=== PATIENT | female | born 2005 | race African-American/Black ===

== ENCOUNTER 2025-02-26 23:26 | Emergency (ER) | payer OTHER ==
--- OUTSIDE RECORDS SUMMARY | 2025-02-26 23:33 | XMS REPORT | Continuity of Care Document ---
Author Name Unknown Address [address] [facility] [address] [place] [address] [facility] [place] Address 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 Name Role Phone Erika Lopez MD Primary Care Physician [phone] Doctor Unassigned, Pearl Attending Clinician U Erika Bunch MD Attending Clinician [phone] ERIKA LOPEZ Attending Clinician Unavailable Payers Payer Name Policy Type Policy Number Effective Date Expirati on Date Source Problems Condition Name Condition Details Condition Category Status Onset Date Resolution Date Last Treatment Date Treating Clinician Comments Source No known active problems No known active problems Disease [facility] Allergies, Adverse Reactions, Alerts Allergy Name Allergy Type Status Severity Reaction(s) Onset Date Inactive Date Treating Clinician Comments Source NO KNOWN ALLERGIE S Drug Class Active [facility] Social History Social Habit Start Date Stop Date Quantity Comments Source [facility]2 (event) 2021-01-03 00:00:00 2021-02-02 14:54:00 Not sure [facility] Sex Assigned At 2005 00:00:00 2005 00:00:00 [facility] Smoking Status Start Date Stop Date Source Tobacco smoking consumption unknown [facility] Medications Ordered Medication Name Filled Medication Name Start Date Stop Date Current Medication? Ordering Clinician Indication Dosage Frequency Signature (SIG) Comments Components Source ferrous sulfate 325 mg (65 mg iron) tablet,preet yed release 01-26 00:00: 00 Yes 1(65 mg iron) Justin Walters [facility] No known medications [facility] No [facility] No known medications No Un silas [facility] No known medications No Un silas [facility] Immunizations Ordered Immunization Name Filled Immunization Name Date Status Comments Source Tdap Tdap 2025-01-22 00:00:00 Completed Justin Renae TDAP 2021-02-02 00:00:00 Completed [facility] Meningococcal Polysaccharide (groups A, C, Y and W-135) conjugate vaccine (MCV4P) 2021-02-02 00:00:00 Completed [facility] TDAP 2021-02-02 00:00:00 Completed [facility] Meningococcal Polysaccharide (groups A, C, Y and W-135) conjugate vaccine (MCV4P) 2021-02-02 00:00:00 Completed [facility] MMR 2011-12-11 00:00:00 Completed [facility] MMR 2011-12-11 00:00:00 Completed [facility] DTAP 2010-08-07 00:00:00 Completed [facility] Varicella (varivax)(chicken pox) 2010-08-07 00:00:00 Completed [facility] DTAP 2010-08-07 00:00:00 Completed [facility] Varicella (varivax)(chicken pox) 2010-08-07 00:00:00 Completed [facility] DTAP 2009-06-20 00:00:00 Completed [facility] HIB 4 Dose Schedule 2009-06-20 00:00:00 Completed [facility] HEPATITIS A 2009-06-20 00:00:00 Completed [facility] Pneumococcal 13 Conjugate, PCV13 (Prevnar 13) 2009-06-20 00:00:00 Completed [facility] DTAP 2009-06-20 00:00:00 Completed [facility] HIB 4 Dose Schedule 2009-06-20 00:00:00 Completed [facility] HEPATITIS A 2009-06-20 00:00:00 Completed [facility] Pneumococcal 13 Conjugate, PCV13 (Prevnar 13) 2009-06-20 00:00:00 Completed [facility] Polio (IPV/OPV) 2007-08-07 00:00:00 Completed [facility] Polio (IPV/OPV) 2007-08-07 00:00:00 Completed [facility] DTAP 2007-01-09 00:00:00 Completed [facility] HIB 4 Dose Schedule 2007-01-09 00:00:00 Completed [facility] HEPATITIS A 2007-01-09 00:00:00 Completed [facility] Hep B, Adol or Pedi Dosage 2007-01-09 00:00:00 Completed [facility] MMR 2007-01-09 00:00:00 Completed [facility] Pneumococcal 13 Conjugate, PCV13 (Prevnar 13) 2007-01-09 00:00:00 Completed [facility] Polio (IPV/OPV) 2007-01-09 00:00:00 Completed [facility] Varicella (varivax)(chicken pox) 2007-01-09 00:00:00 Completed [facility] DTAP 2007-01-09 00:00:00 Completed [facility] HIB 4 Dose Schedule 2007-01-09 00:00:00 Completed [facility] HEPATITIS A 2007-01-09 00:00:00 Completed [facility] Hep B, Adol or Pedi Dosage 2007-01-09 00:00:00 Completed [facility] MMR 2007-01-09 00:00:00 Completed [facility] Pneumococcal 13 Conjugate, PCV13 (Prevnar 13) 2007-01-09 00:00:00 Completed [facility] Polio (IPV/OPV) 2007-01-09 00:00:00 Completed [facility] Varicella (varivax)(chicken pox) 2007-01-09 00:00:00 Completed [facility] DTAP 2005 00:00:00 Completed [facility] HIB 4 Dose Schedule 2005 00:00:00 Completed [facility] Hep B, Adol or Pedi Dosage 2005 00:00:00 Completed [facility] Pneumococcal 13 Conjugate, PCV13 (Prevnar 13) 2005 00:00:00 Completed [facility] Polio (IPV/OPV) 2005 00:00:00 Completed [facility] DTAP 2005 00:00:00 Completed [facility] HIB 4 Dose Schedule 2005 00:00:00 Completed [facility] Hep B, Adol or Pedi Dosage 2005 00:00:00 Completed [facility] Pneumococcal 13 Conjugate, PCV13 (Prevnar 13) 2005 00:00:00 Completed [facility] Polio (IPV/OPV) 2005 00:00:00 Completed [facility] DTAP 2005 00:00:00 Completed [facility] HIB 4 Dose Schedule 2005 00:00:00 Completed [facility] Hep B, Adol or Pedi Dosage 2005 00:00:00 Completed [facility] Pneumococcal 13 Conjugate, PCV13 (Prevnar 13) 2005 00:00:00 Completed [facility] Polio (IPV/OPV) 2005 00:00:00 Completed [facility] DTAP 2005 00:00:00 Completed [facility] HIB 4 Dose Schedule 2005 00:00:00 Completed [facility] Hep B, Adol or Pedi Dosage 2005 00:00:00 Completed [facility] Pneumococcal 13 Conjugate, PCV13 (Prevnar 13) 2005 00:00:00 Completed [facility] Polio (IPV/OPV) 2005 00:00:00 Completed [facility] Hep B, Adol or Pedi Dosage 2005 00:00:00 Completed [facility] Hep B, Adol or Pedi Dosage 2005 00:00:00 Completed [facility] TDAP Unknown Completed [facility] Meningococcal Polysaccharide (groups A, C, Y and W-135) conjugate vaccine (MCV4P) Unknown Completed [facility] DTAP Unknown Completed [facility] HIB 4 Dose Schedule Unknown Completed [facility] HEPATITIS A Unknown Completed [facility] Hep B, Adol or Pedi Dosage Unknown Completed [facility] MMR Unknown Completed [facility] Pneumococcal 13 Conjugate, PCV13 (Prevnar 13) Unknown Completed [facility] Polio (IPV/OPV) Unknown Completed [facility] Varicella (varivax)(chicken pox) Unknown Completed [facility] Vital Signs Vital Name Observation Time Observation Value Comments S ource Systolic blood pressure 2021-02-02 19:46:00 90 mm[Hg] [facility] Diastolic blood pressure 2021-02-02 19:46:00 60 mm[Hg] [facility] Heart rate 2021-02-02 19:46:00 88 /min [facility] Body height 2021-02-02 19:46:00 154.9 cm [facility] Body weight 2021-02-02 19:46:00 52.164 kg [facility] BMI 2021-02-02 19:46:00 21.73 kg/m2 [facility] Oxygen saturation in Arterial blood by Pulse oximetry 2021-02-02 19:46:00 99 /min [facility] BP Systolic 2025-02-05 10:44:00 104 mm[Hg] Step hen F Oc BP Diastolic 2025-02-05 10:44:00 68 mm[Hg] [place]ne phen F Oc Weight Measured 2025-02-05 10:44:00 119.00 pounds Justin Walters Oc Height Measured 2025-02-05 10:44:00 60.63 inches Justin Renae Body Temperature 2025-02-05 10:44:00 98.10 degrees Justin F Oc Heart Rate 2025-02-05 10:44:00 75.00 /min Yuliya en F Oc Respiratory Rate 2025-02-05 10:44:00 18.00 /min Justin F Oc BP Systolic 2025-01-22 09:35:00 108 mm[Hg] Step hen F Oc BP Diastolic 2025-01-22 09:35:00 69 mm[Hg] Shayne phen F Oc Weight Measured 2025-01-22 09:35:00 118.80 pounds Justin Selena Renae Height Measured 2025-01-22 09:35:00 60.63 inches Justin F Oc Body Temperature 2025-01-22 09:35:00 98.00 degrees Justin F Oc Heart Rate 2025-01-22 09:35:00 65.00 /min Yuliya en F Oc Respiratory Rate 2025-01-22 09:35:00 14.00 /min Justin F Oc BP Systolic 2024-12-25 13:29:00 98 mm[Hg] Step hen F Oc BP Diastolic 2024-12-25 13:29:00 68 mm[Hg] Shayne phen F Oc Weight Measured 2024-12-25 13:29:00 118.80 pounds Justin F Oc Height Measured 2024-12-25 13:29:00 60.63 inches Justin F Oc Body Temperature 2024-12-25 13:29:00 97.90 degrees Justin F Oc Heart Rate 2024-12-25 13:29:00 86.00 /min Yuliya en F Oc Respiratory Rate 2024-12-25 13:29:00 18.00 /min Justin F Oc BP Systolic 2024-11-26 14:33:00 117 mm[Hg] Step hen F Oc BP Diastolic 2024-11-26 14:33:00 78 mm[Hg] Sh[place]ne phen F Oc Weight Measured 2024-11-26 14:33:00 113.80 pounds Justin F Oc Height Measured 2024-11-26 14:33:00 60.63 inches Justin F Oc Body Temperature 2024-11-26 14:33:00 97.50 degrees Justin F Oc Heart Rate 2024-11-26 14:33:00 72.00 /min Yuliya en F Oc Respiratory Rate 2024-11-26 14:33:00 17.00 /min Justin F Oc BP Systolic 2024-10-27 15:59:00 109 mm[Hg] Step hen F Oc BP Diastolic 2024-10-27 15:59:00 80 mm[Hg] Sh[place]ne phen F Oc Weight Measured 2024-10-27 15:59:00 109.20 pounds Justin F Oc Height Measured 2024-10-27 15:59:00 60.63 inches Justin F Oc Body Temperature 2024-10-27 15:59:00 97.80 degrees Justin F Oc Heart Rate 2024-10-27 15:59:00 90.00 /min Yuliya en F Oc Respiratory Rate 2024-10-27 15:59:00 16.00 /min Justin F Oc BP Systolic 2024-09-29 15:54:00 114 mm[Hg] Step hen F Oc BP Diastolic 2024-09-29 15:54:00 79 mm[Hg] Sh[place]ne phen F Oc Weight Measured 2024-09-29 15:54:00 108.20 pounds Justin F Oc Height Measured 2024-09-29 15:54:00 60.63 inches Justin F Oc Body Temperature 2024-09-29 15:54:00 98.20 degrees Justin F Oc Heart Rate 2024-09-29 15:54:00 69.00 /min Yuliya en F Oc Respiratory Rate 2024-09-29 15:54:00 18.00 /min Justin F Oc BP Systolic 2024-09-02 14:26:00 111 mm[Hg] Step hen F Oc BP Diastolic 2024-09-02 14:26:00 70 mm[Hg] [place]ne phen F Oc Weight Measured 2024-09-02 14:26:00 108.20 pounds Justin F Oc Height Measured 2024-09-02 14:26:00 60.63 inches Justin F Oc Body Temperature 2024-09-02 14:26:00 98.30 degrees Justin F Oc Heart Rate 2024-09-02 14:26:00 70.00 /min Yuliya en F Oc Respiratory Rate 2024-09-02 14:26:00 17.00 /min Justin F Oc BP Systolic 2024-08-28 13:19:00 120 mm[Hg] Step hen F Oc BP Diastolic 2024-08-28 13:19:00 71 mm[Hg] [place]ne phen F Oc Weight Measured 2024-08-28 13:19:00 109.80 pounds Justin F Oc Height Measured 2024-08-28 13:19:00 60.63 inches Justin F Oc Body Temperature 2024-08-28 13:19:00 98.10 degrees Justin F Oc Heart Rate 2024-08-28 13:19:00 73.00 /min Yuliya en F Oc Respiratory Rate 2024-08-28 13:19:00 16.00 /min Justin F Oc BP Systolic 2024-03-19 14:09:00 122 mm[Hg] Step hen F Oc BP Diastolic 2024-03-19 14:09:00 86 mm[Hg] [place]ne phen F Oc Weight Measured 2024-03-19 14:09:00 125.00 pounds Justin F Oc Height Measured 2024-03-19 14:09:00 60.63 inches Justin F Oc Body Temperature 2024-03-19 14:09:00 98.10 degrees Justin F Oc Heart Rate 2024-03-19 14:09:00 69.00 /min Yuliya en F Oc Respiratory Rate 2024-03-19 14:09:00 18.00 /min Justin F Oc BP Systolic 2024-03-06 11:11:00 116 mm[Hg] Step hen F Oc BP Diastolic 2024-03-06 11:11:00 67 mm[Hg] [place]ne phen F Oc Weight Measured 2024-03-06 11:11:00 124.20 pounds Justin F Oc Height Measured 2024-03-06 11:11:00 60.63 inches Justin F Oc Body Temperature 2024-03-06 11:11:00 98.20 degrees Justin F Oc Heart Rate 2024-03-06 11:11:00 66.00 /min Yuliya en F Oc Respiratory Rate 2024-03-06 11:11:00 18.00 /min Justin F Oc Heart Rate 2024-02-20 11:17:00 81.00 /min Yuliya en F Oc Respiratory Rate 2024-02-20 11:17:00 Justin F Oc BP Systolic 2024-02-20 11:17:00 131 mm[Hg] Step hen F Oc BP Diastolic 2024-02-20 11:17:00 87 mm[Hg] [place]ne phen F Oc Weight Measured 2024-02-20 11:17:00 124.90 pounds Justin F Oc Height Measured 2024-02-20 11:17:00 60.63 inches Justin F Oc Body Temperature 2024-02-20 11:17:00 98.10 degrees Justin F Oc BP Systolic 2023-12-23 13:18:00 113 mm[Hg] Step hen F Oc BP Diastolic 2023-12-23 13:18:00 73 mm[Hg] Shayne Renae Weight Measured 2023-12-23 13:18:00 119.20 pounds Justin Renae Height Measured 2023-12-23 13:18:00 60.83 inches Justin Renae Body Temperature 2023-12-23 13:18:00 97.80 degrees Justin Renae Heart Rate 2023-12-23 13:18:00 88.00 /min Yuliya Renae Respiratory Rate 2023-12-23 13:18:00 18.00 /min Justin Renae Procedures Procedure Date / Time Performed Performing Clinician Source VACCINATIONS - CONSENTS, ELIGIBILITY, HISTORY 2021-02-27 05:01:00 Doctor Unassigned, Pearl [facility] TDAP VACCINE, >11 YRS, IM 2021-02-02 20:02:06 Erika Lopez [facility] MENACTRA (MCV4-D) VACCINE 2021-02-02 20:02:06 Erika Lopez [facility] Encounters Start Date/Time End Date/Time Encounter Type Admission Type Attending [facility] Care Department Encounter ID Source 2025-02-05 10:41:01 2025-02-05 10:41:[address] [facility] [id number] Justin Renae 2025-02-05 00:00:00 2025-02-05 00:00:00 Outpatient Visit SFA [id number] Justin Renae 2025-01-22 09:16:57 2025-01-22 09:16:[address] [facility] [id number] Justin Renae 2025-01-22 00:00:00 2025-01-22 00:00:00 Outpatient Visit SFA [id number] Justin Renae 2024-12-25 13:25:45 2024-12-25 13:25:[address] [facility] [id number] Justin Renae 2024-12-25 00:00:00 2024-12-25 00:00:00 Outpatient Visit SFA [id number] Justin Renae 2024-12-17 11:42:06 2024-12-17 11:42:06 Outpatient SFA SFA [id number] Justin Renae 2024-11-26 14:28:45 2024-11-26 14:28:45 Outpatient SFA [facility] [id number] Justin Renae 2024-11-26 00:00:00 2024-11-26 00:00:00 Outpatient Visit SFA [id number] Justin Renae 2024-10-27 15:44:56 2024-10-27 15:44:56 Outpatient SFA SFA [id number] Justin Renae 2024-10-27 00:00:00 2024-10-27 00:00:00 Outpatient Visit SFA [id number] Justin Renae 2024-10-15 15:51:48 2024-10-15 15:51:48 Outpatient SFA SFA [id number] Justin Renae 2024-10-12 16:47:34 2024-10-12 16:47:34 Outpatient SFA SFA [id number] Justin Renae 2024-09-29 15:45:29 2024-09-29 15:45:29 Outpatient SFA SFA [id number] Justin Renae 2024-09-29 00:00:00 2024-09-29 00:00:00 Outpatient Visit SFA [id number] Justin Renae 2024-09-17 14:34:51 2024-09-17 14:34:51 Outpatient SFA SFA [id number] Justin Renae 2024-09-02 13:53:08 2024-09-02 13:53:08 Outpatient SFA SFA [id number] Justin Renae 2024-09-02 00:00:00 2024-09-02 00:00:00 Outpatient Visit SFA [id number] Justin Renae 2024-08-28 13:08:56 2024-08-28 13:08:56 Outpatient SFA SFA [id number] Justin Renae 2024-08-28 00:00:00 2024-08-28 00:00:00 Outpatient Visit SFA [id number] Justin Renae 2024-03-19 14:06:23 2024-03-19 14:06:23 Outpatient SFA SFA [id number] Justin Renae 2024-03-19 00:00:00 2024-03-19 00:00:00 Outpatient Visit SFA [id number] Justin Renae 2024-03-06 13:47:01 2024-03-06 13:47:01 Outpatient SFA SFA [id number] Justin Renae 2024-03-06 00:00:00 2024-03-06 00:00:00 Outpatient Visit SFA [id number] Justin Renae 2024-02-24 09:16:57 2024-02-24 09:16:57 Outpatient SFA SFA [id number] Justin Renae 2024-02-20 11:08:26 2024-02-20 11:08:26 Outpatient SFA SFA [id number] Justin Renae 2024-02-20 00:00:00 2024-02-20 00:00:00 Outpatient Visit SFA [id number] Justin Renae 2023-12-23 13:10:52 2023-12-23 13:10:52 Outpatient SFA SFA [id number] Justin Renae 2021-02-27 00:00:00 2021-02-27 00:00:00 Orders Only Doctor Unassigned, Pearl [facility] 1..114 [id number] [facility] 2021-02-03 00:00:00 2021-02-03 00:00:00 Patient Secure Msg Doctor Unassigned, Pearl [facility] 1.0.114 [id number] [facility] 2021-02-02 14:28:01 2021-02-02 15:54:26 Office Visit Erika Lopez [facility] [address] 1.114 [id number] [facility] 2021-02-02 14:30:00 2021-02-02 14:30:00 Outpatient R [facility]RIKA [facility]OPE[facility] [id number] [facility] Results Test Description Test Time Test Comments Results Result Co mments Source Justin Walters [facility] (INCLUDES DIFF/PLT)2025-01-25 00:00:00* Test Item Value Reference Range Interpretation Comme nts WHITE BLOOD CELL COUNT (test code = 6690-2) 5.4 Thousand/uL RED BLOOD CELL COUNT (test code = 789-8) 3.23 Million/uL HEMOGLOBIN (test code = 718-7) 9.9 g/dL HEMATOCRIT (test code = 4544-3) 29.7 % MCV (test code = 787-2) 92.0 fL MCH (test code = 785-6) 30.7 pg MCHC (test code = 786-4) 33.3 g/dL RDW (test code = 788-0) 12.3 % PLATELET COUNT (test code = 777-3) 218 Thousand/uL MPV (test code = 776-5) 11.7 fL ABSOLUTE NEUTROPHILS (test code = 751-8) 3985 cells/uL ABSOLUTE BAND NEUTROPHILS (test code = 68266-4) DNR cells/uL ABSOLUTE METAMYELOCYTES (marian t code = 21632-4) DNR cells/uL ABSOLUTE MYELOCYTES (test code = 46546-0) DNR cells/uL ABSOLUTE PROMYELOCYTES (test code = 62953-3) DNR cells/uL ABSOLUTE LYMPHOCYTES (test code = 731-0) 859 cells/uL ABSOLUTE MONOCYTES (test cod e = 742-7) 432 cells/uL ABSOLUTE EOSINOPHILS (test code = 711-2) 103 cells/uL ABSOLUTE BASOPHILS (test cod e = 704-7) 22 cells/uL ABSOLUTE BLASTS (test code = 22558-0) DNR cells/uL ABSOLUTE NUCLEATED RBC (test code = 58110-9) DNR cells/uL NEUTROPHILS (test code = 770-8) 73.8 % BAND NEUTROPHILS (test code = 764-1) DNR % METAMYELOCYTES (test code = 740-1) DNR % MYELOCYTES (test code = 749-2) DNR % PROMYELOCYTES (test code = 783-1) DNR % LYMPHOCYTES (test code = 736-9) 15.9 % REACTIVE LYMPHOCYTES (test code = 36927-4) DNR % MONOCYTES (test code = 5905-5) 8.0 % EOSINOPHILS (test code = 713-8) 1.9 % BASOPHILS (test code = 706-2) 0.4 % BLASTS (test code = 709-6) DNR % NUCLEATED RBC (test code = 63978-7) DNR /100WBC COMMENT(S) (test code = 8251-1) DNR Justin F AustinCHLAMYDIA/N. GONORRHOEAE RNA, [id number] 00:00:00* Test Item Value Reference Range Interpretation Comme nts CHLAMYDIA TRACHOMATIS RNA, T MA, UROGENITAL (test code = 43858-7) NOT DETECTED NEISSERIA GONORRHOEAE RNA, T MA, UROGENITAL (test code = 45810-8) NOT DETECTED Justin F AustinGLUCOSE, GESTATIONAL SCREEN (50G)-135 [id number] 00:00:00 * Test Item Value Reference Range Interpretation Comme nts GLUCOSE, GESTATIONAL SCREEN (50G)-135 CUTOFF (test code = 1504-0) 73 mg/dL Justin RenaeHIV 1/2 ANTIGEN/ANTIBODY,FOURTH GENERATION [id number] 00:00:00* Test Item Value Reference Range Interpretation Comme nts HIV AG/AB, 4TH GEN (test cod e = 14558-2) NON-REACTIVE Justin RenaeRPR (MONITOR) W/REFL [id number] 00:00:00* Test Item Value Reference Range Interpretation Comme nts RPR (MONITOR) W/REFL TITER ( test code = 01543-0) NON-REACTIVE Justin Sepulveda w/ABR [id number] 00:00:00* Test Item Value Reference Range Interpretation Comme nts ACINETOBACTER BAUMANNII (marian t code = 80488-3) Negative KLEBSIELLA AEROGENES (test c ode = 63469-4) Negative CITROBACTER FREUNDII (test c ode = 83945-6) Negative ENTEROBACTER CLOACAE (test c ode = 63565LKU) Negative ESCHERICHIA COLI (test code = 39517-4) Negative KLEBSIELLA OXYTOCA (test cod e = 36675-7) Negative KLEBSIELLA PNEUMONIAE (test code = 64994-7) Negative MORGANELLA MORGANII (test co de = 14913-7) Negative MYCOPLASMA HOMINIS (test cod e = 81295-1) Negative PROTEUS MIRABILIS (test code = 72165-3) Negative PROTEUS VULGARIS (test code = 194149-6) Negative PROVIDENCIA STUARTII (test c ode = 27742-3) Negative PSEUDOMONAS AERUGINOSA (test code = 63705-4) Negative SERRATIA MARCESCENS (test co de = 77456-4) Negative UREAPLASMA UREALYTICUM (test code = 79768-4) Negative ENTEROCOCCUS FAECALIS (test code = 20695-9) Negative ENTEROCOCCUS FAECIUM (test c ode = 46801-7) Negative STAPHYLOCOCCUS AUREUS (test code = 58025-2) Negative STAPHYLOCOCCUS SAPROPHYTICUS (test code = 14217-3) Negative STREPTOCOCCUS AGALACTIAE (te st code = 57697-7) Negative BRAYDON ALBICANS (test code = 14018-7) Negative BRAYDON GLABRATA (test code = no code1) Negative BRAYDON PARAPSILOSIS (test c ode = no code3) Negative BRAYDON TROPICALIS (test cod e = No code) Negative Justin Sepulveda w/ABR [id number] 00:00:00* Test Item Value Reference Range Interpretation Comme nts ACINETOBACTER BAUMANNII (marian t code = 61160-8) Negative KLEBSIELLA AEROGENES (test c ode = 04889-7) Negative CITROBACTER FREUNDII (test c ode = 19543-5) Negative ENTEROBACTER CLOACAE (test c ode = 68567AFE) Negative ESCHERICHIA COLI (test code = 75830-0) Negative KLEBSIELLA OXYTOCA (test cod e = 35269-3) Negative KLEBSIELLA PNEUMONIAE (test code = 93736-8) Negative MORGANELLA MORGANII (test co de = 45465-6) Negative MYCOPLASMA HOMINIS (test cod e = 96177-2) Negative PROTEUS MIRABILIS (test code = 59410-6) Negative PROTEUS VULGARIS (test code = 565559-9) Negative PROVIDENCIA STUARTII (test c ode = 82788-4) Negative PSEUDOMONAS AERUGINOSA (test code = 24955-6) Negative SERRATIA MARCESCENS (test co de = 21422-8) Negative UREAPLASMA UREALYTICUM (test code = 87014-3) Negative ENTEROCOCCUS FAECALIS (test code = 76275-6) Negative ENTEROCOCCUS FAECIUM (test c ode = 70082-3) Negative STAPHYLOCOCCUS AUREUS (test code = 31442-4) Negative STAPHYLOCOCCUS SAPROPHYTICUS (test code = 96796-2) Negative STREPTOCOCCUS AGALACTIAE (te st code = 27516-6) Negative BRAYDON ALBICANS (test code = 29691-5) Negative BRAYDON GLABRATA (test code = no code1) Negative BRAYDON PARAPSILOSIS (test c ode = no code3) Negative BRAYDON TROPICALIS (test cod e = No code) Negative Justin Walters AustinPanorama NIPT [id number] 00:00:00* Test Item Value Reference Range Interpretation Comme nts Report Summary (test code = REPORT_SUMMARY) LOW RISK Report Note (test code = REPORT_NOTE) See Notes Trisomy 13 Age-Based Risk Text (test code = NPT_T13_AGE_BASED_RISK_TEX T) <1/10,000 (<0.01%) Trisomy 13 Risk Score Text (test code = NPT_T13_RISK_SCORE_TEXT) <1/10,000 (<0.01%) Trisomy 13 Result Text (test code = NPT_T13_RESULT_TEXT) Low Risk Trisomy 18 Age-Based Risk Text (test code = NPT_T18_AGE_BASED_RISK_TEX T) 1/4,897 (0.02%) Trisomy 18 Risk Score Text (test code = NPT_T18_RISK_SCORE_TEXT) <1/10,000 (<0.01%) Trisomy 18 Result Text (test code = NPT_T18_RESULT_TEXT) Low Risk Trisomy 21 Age-Based Risk Text (test code = NPT_T21_AGE_BASED_RISK_TEX T) 1/1,295 (0.08%) Trisomy 21 Risk Score Text (test code = NPT_T21_RISK_SCORE_TEXT) <1/10,000 (<0.01%) Trisomy 21 Result Text (test code = NPT_T21_RESULT_TEXT) Low Risk Monosomy X Age-Based Risk Text (test code = NPT_X_AGE_BASED_RISK_TEXT) 1/568 (0.18%) Monosomy X Risk Score Text (test code = NPT_X_RISK_SCORE_TEXT) <1/10,000 (<0.01%) Monosomy X Result Text (test code = NPT_X_RESULT_TEXT) Low Risk 22q11.2 Deletion Syndrome Population-Based Risk Text (test code = NPT_22Q_POP_BASED_RISK_TEX T) 1/2,000 22q11.2 Deletion Syndrome Risk Score Text (test code = NPT_22Q_RISK_SCORE_TEXT) 1/12,000 22q11.2 Deletion Syndrome Result Text (test code = NPT_22Q_RESULT_TEXT) Low Risk Triploidy Result Text (test code = NPT_TRI_RESULT_TEXT) Low Risk Gender of Fetus (test code = GENDER_OF_FETUS) Male Fraction (test code = FETAL_FRACTION_STRING) 19.9% Footnotes (test code = FOOTNOTES) See Notes PDF Report (test code = EMBEDDED_PDF) PDF Justin Ruiz NIPT [id number] 00:00:00* Test Item Value Reference Range Interpretation Comme nts Report Summary (test code = REPORT_SUMMARY) LOW RISK Report Note (test code = REPORT_NOTE) See Notes Trisomy 13 Age-Based Risk Text (test code = NPT_T13_AGE_BASED_RISK_TEX T) <1/10,000 (<0.01%) Trisomy 13 Risk Score Text (test code = NPT_T13_RISK_SCORE_TEXT) <1/10,000 (<0.01%) Trisomy 13 Result Text (test code = NPT_T13_RESULT_TEXT) Low Risk Trisomy 18 Age-Based Risk Text (test code = NPT_T18_AGE_BASED_RISK_TEX T) 1/4,897 (0.02%) Trisomy 18 Risk Score Text (test code = NPT_T18_RISK_SCORE_TEXT) <1/10,000 (<0.01%) Trisomy 18 Result Text (test code = NPT_T18_RESULT_TEXT) Low Risk Trisomy 21 Age-Based Risk Text (test code = NPT_T21_AGE_BASED_RISK_TEX T) 1/1,295 (0.08%) Trisomy 21 Risk Score Text (test code = NPT_T21_RISK_SCORE_TEXT) <1/10,000 (<0.01%) Trisomy 21 Result Text (test code = NPT_T21_RESULT_TEXT) Low Risk Monosomy X Age-Based Risk Text (test code = NPT_X_AGE_BASED_RISK_TEXT) 1/568 (0.18%) Monosomy X Risk Score Text (test code = NPT_X_RISK_SCORE_TEXT) <1/10,000 (<0.01%) Monosomy X Result Text (test code = NPT_X_RESULT_TEXT) Low Risk 22q11.2 Deletion Syndrome Population-Based Risk Text (test code = NPT_22Q_POP_BASED_RISK_TEX T) 1/2,000 22q11.2 Deletion Syndrome Risk Score Text (test code = NPT_22Q_RISK_SCORE_TEXT) 1/12,000 22q11.2 Deletion Syndrome Result Text (test code = NPT_22Q_RESULT_TEXT) Low Risk Triploidy Result Text (test code = NPT_TRI_RESULT_TEXT) Low Risk Gender of Fetus (test code = GENDER_OF_FETUS) Male Fraction (test code = FETAL_FRACTION_STRING) 19.9% Footnotes (test code = FOOTNOTES) See Notes PDF Report (test code = EMBEDDED_PDF) PDF Justin Ruiz NIPT [id number] 00:00:00* Test Item Value Reference Range Interpretation Comme nts Report Summary (test code = REPORT_SUMMARY) LOW RISK Report Note (test code = REPORT_NOTE) See Notes Trisomy 13 Age-Based Risk Text (test code = NPT_T13_AGE_BASED_RISK_TEX T) <1/10,000 (<0.01%) Trisomy 13 Risk Score Text (test code = NPT_T13_RISK_SCORE_TEXT) <1/10,000 (<0.01%) Trisomy 13 Result Text (test code = NPT_T13_RESULT_TEXT) Low Risk Trisomy 18 Age-Based Risk Text (test code = NPT_T18_AGE_BASED_RISK_TEX T) 1/4,897 (0.02%) Trisomy 18 Risk Score Text (test code = NPT_T18_RISK_SCORE_TEXT) <1/10,000 (<0.01%) Trisomy 18 Result Text (test code = NPT_T18_RESULT_TEXT) Low Risk Trisomy 21 Age-Based Risk Text (test code = NPT_T21_AGE_BASED_RISK_TEX T) 1/1,295 (0.08%) Trisomy 21 Risk Score Text (test code = NPT_T21_RISK_SCORE_TEXT) <1/10,000 (<0.01%) Trisomy 21 Result Text (test code = NPT_T21_RESULT_TEXT) Low Risk Monosomy X Age-Based Risk Text (test code = NPT_X_AGE_BASED_RISK_TEXT) 1/568 (0.18%) Monosomy X Risk Score Text (test code = NPT_X_RISK_SCORE_TEXT) <1/10,000 (<0.01%) Monosomy X Result Text (test code = NPT_X_RESULT_TEXT) Low Risk 22q11.2 Deletion Syndrome Population-Based Risk Text (test code = NPT_22Q_POP_BASED_RISK_TEX T) 2,000 22q11.2 Deletion Syndrome Risk Score Text (test code = NPT_22Q_RISK_SCORE_TEXT) 11/08, 22q11.2 Deletion Syndrome Result Text (test code = NPT_22Q_RESULT_TEXT) Low Risk Triploidy Result Text (test code = NPT_TRI_RESULT_TEXT) Low Risk Gender of Fetus (test code = GENDER_OF_FETUS) Male Fraction (test code = FETAL_FRACTION_STRING) 19.9% Footnotes (test code = FOOTNOTES) See Notes PDF Report (test code = EMBEDDED_PDF) PDF Justin Walters AustinMATERNAL AFP FOR NTD [id number] 00:00:00* Test Item Value Reference Range Interpretation Comme nts INTERPRETATION (test code = 682698) SCREEN NEGATIVE Neural tube defect risk (marian t code = 51199) 1:7752 Neural tube defect interpretation (test code = 23100) (NOTE) DATE OF (test code = 2660) 2005 MATERNAL WEIGHT (test code = 2657) 114 LBS INITIAL/REPEAT (test code = 598217) INITIAL FAMILY HISTORY OF NTD (test code = 910155) NO INSULIN DEP. DIABETIC (test code = 2659) NO RACE (test code = 2658) OTHER SMOKER? (test code = 741605) NO NUMBER OF FETUSES (test code = 63911) 1 GESTATIONAL AGE (test code = 2656) 21.1 WEEKS DETERMINED BY: (test code = 2654) LMP DATE OF LMP (test code = 2652) 07/01/2024 ADJUST AFP M.O.M. (test code = 2661) 0.53 M.O.M. AFP (test code = 75648) 41.5 NG/ML Justin Walters AustinMATERNAL AFP FOR NTD [id number] 00:00:00* Test Item Value Reference Range Interpretation Comme nts INTERPRETATION (test code = 686602) SCREEN NEGATIVE Neural tube defect risk (marian t code = 81511) 1:7752 Neural tube defect interpretation (test code = 56517) (NOTE) DATE OF (test code = 2660) 2005 MATERNAL WEIGHT (test code = 2657) 114 LBS INITIAL/REPEAT (test code = 776520) INITIAL FAMILY HISTORY OF NTD (test code = 668634) NO INSULIN DEP. DIABETIC (test code = 2659) NO RACE (test code = 2658) OTHER SMOKER? (test code = 814475) NO NUMBER OF FETUSES (test code = 80934) 1 GESTATIONAL AGE (test code = 2656) 21.1 WEEKS DETERMINED BY: (test code = 2654) LMP DATE OF LMP (test code = 2652) 07/01/2024 ADJUST AFP M.O.M. (test code = 2661) 0.53 M.O.M. AFP (test code = 03797) 41.5 NG/ML Justin RenaeMATERNAL AFP FOR NTD [id number] 00:00:00* Test Item Value Reference Range Interpretation Comme nts INTERPRETATION (test code = 383217) SCREEN NEGATIVE Neural tube defect risk (marian t code = 92267) 1:7752 Neural tube defect interpretation (test code = 98478) (NOTE) DATE OF (test code = 2660) 2005 MATERNAL WEIGHT (test code = 2657) 114 LBS INITIAL/REPEAT (test code = 009132) INITIAL FAMILY HISTORY OF NTD (test code = 485588) NO INSULIN DEP. DIABETIC (test code = 2659) NO RACE (test code = 2658) OTHER SMOKER? (test code = 030434) NO NUMBER OF FETUSES (test code = 85439) 1 GESTATIONAL AGE (test code = 2656) 21.1 WEEKS DETERMINED BY: (test code = 2654) LMP DATE OF LMP (test code = 2652) 07/01/2024 ADJUST AFP M.O.M. (test code = 2661) 0.53 M.O.M. AFP (test code = 67235) 41.5 NG/ML Justin Stratton, [id number] 00:00:00* Test Item Value Reference Range Interpretation Comme nts CULTURE, URINE (test code = 63074) SPECIMEN NUMBER: [id number] Justin RenaeCULTURE, [id number] 00:00:00* Test Item Value Reference Range Interpretation Comme nts CULTURE, URINE (test code = 94416) SPECIMEN NUMBER: [id number] Justin RenaeCULTURE, [id number] 00:00:00* Test Item Value Reference Range Interpretation Comme nts CULTURE, URINE (test code = 67675) SPECIMEN NUMBER: [id number] Justin ReaneCULTURE, [id number] 00:00:00* Test Item Value Reference Range Interpretation Comme nts CULTURE, URINE (test code = 43884) SPECIMEN NUMBER: [id number] Justin Stratton, [id number] 00:00:00* Test Item Value Reference Range Interpretation Comme nts CULTURE, URINE (test code = 71780) SPECIMEN NUMBER: [id number] Justin Stratton, [id number] 00:00:00* Test Item Value Reference Range Interpretation Comme nts CULTURE, URINE (test code = 46922) SPECIMEN NUMBER: [id number] Justin JungLTTESHA, [id number] 00:00:00* Test Item Value Reference Range Interpretation Comme nts CULTURE, URINE (test code = 15667) SPECIMEN NUMBER: [id number] Justin Bandazon 14 ([facility])2024-10-27 00:00:00* Test Item Value Reference Range Interpretation Comme nts Report Summary (test code = REPORT_SUMMARY) Negative Alpha-Thalassemia (test code = 81929) Negative Beta-Hemoglobinopathies (marian t code = 70377) Negative Mariah Disease (test code = 90541) Negative Cystic Fibrosis (test code = 04073) Negative Duchenne/Garay Muscular Dys trophy (X-linked) (test code = 55501) Negative Familial Dysautonomia (test code = 73467) Negative Fragile X Syndrome (X-linked ) (test code = 89790) Negative Galactosemia (test code = 92885) Negative Gaucher Disease (test code = 91673) Negative Medium Chain Acyl-CoA Dehydr ogenase Deficiency (test code = 73280) Negative Polycystic Kidney Disease, Autosomal Recessive (test code = 31767) Negative Xptrd-Vivrz-Pbjfr Syndrome ( test code = 59487) Negative Spinal Muscular Atrophy (marian t code = 10868) Negative Cortez-Sachs Disease (test code = 37570) Negative Panel Notes (test code = CS_PANEL_NOTES) See Notes Report Note (test code = REPORT_NOTE) See Notes Footnotes (test code = FOOTNOTES) See Notes PDF Report (test code = EMBEDDED_PDF) PDF Justin Shaikhn 14 ([employer])2024-10-27 00:00:00* Test Item Value Reference Range Interpretation Comme nts Report Summary (test code = REPORT_SUMMARY) Negative Alpha-Thalassemia (test code = 72780) Negative Beta-Hemoglobinopathies (marian t code = 60652) Negative Mariah Disease (test code = 50398) Negative Cystic Fibrosis (test code = 96863) Negative Duchenne/Garay Muscular Dys trophy (X-linked) (test code = 02585) Negative Familial Dysautonomia (test code = 92959) Negative Fragile X Syndrome (X-linked ) (test code = 62957) Negative Galactosemia (test code = 07371) Negative Gaucher Disease (test code = 24384) Negative Medium Chain Acyl-CoA Dehydr ogenase Deficiency (test code = 72049) Negative Polycystic Kidney Disease, Autosomal Recessive (test code = 55043) Negative Nxrbm-Jjkkx-Lysul Syndrome ( test code = 90399) Negative Spinal Muscular Atrophy (marian t code = 59513) Negative Cortez-Sachs Disease (test code = 20299) Negative Panel Notes (test code = CS_PANEL_NOTES) See Notes Report Note (test code = REPORT_NOTE) See Notes Footnotes (test code = FOOTNOTES) See Notes PDF Report (test code = EMBEDDED_PDF) PDF Justin Graff 14 ([employer])2024-10-27 00:00:00* Test Item Value Reference Range Interpretation Comme nts Report Summary (test code = REPORT_SUMMARY) Negative Alpha-Thalassemia (test code = 90096) Negative Beta-Hemoglobinopathies (marian t code = 69839) Negative Mariah Disease (test code = 66814) Negative Cystic Fibrosis (test code = 22348) Negative Duchenne/Garay Muscular Dys trophy (X-linked) (test code = 97611) Negative Familial Dysautonomia (test code = 34467) Negative Fragile X Syndrome (X-linked ) (test code = 84598) Negative Galactosemia (test code = 12890) Negative Gaucher Disease (test code = 10506) Negative Medium Chain Acyl-CoA Dehydr ogenase Deficiency (test code = 64791) Negative Polycystic Kidney Disease, Autosomal Recessive (test code = 26134) Negative Oresn-Wsqcg-Fsmqh Syndrome ( test code = 35515) Negative Spinal Muscular Atrophy (marian t code = 28262) Negative Cortez-Sachs Disease (test code = 21423) Negative Panel Notes (test code = CS_PANEL_NOTES) See Notes Report Note (test code = REPORT_NOTE) See Notes Footnotes (test code = FOOTNOTES) See Notes PDF Report (test code = EMBEDDED_PDF) PDF Justin Shaikhn 14 ([employer])2024-10-27 00:00:00* Test Item Value Reference Range Interpretation Comme nts Report Summary (test code = REPORT_SUMMARY) Negative Alpha-Thalassemia (test code = 96769) Negative Beta-Hemoglobinopathies (marian t code = 60334) Negative Mariah Disease (test code = 69299) Negative Cystic Fibrosis (test code = 76538) Negative Duchenne/Garay Muscular Dys trophy (X-linked) (test code = 58646) Negative Familial Dysautonomia (test code = 57759) Negative Fragile X Syndrome (X-linked ) (test code = 15669) Negative Galactosemia (test code = 74227) Negative Gaucher Disease (test code = 38616) Negative Medium Chain Acyl-CoA Dehydr ogenase Deficiency (test code = 88272) Negative Polycystic Kidney Disease, Autosomal Recessive (test code = 44406) Negative Czrtx-Rbkey-Kskbb Syndrome ( test code = 73565) Negative Spinal Muscular Atrophy (marian t code = 42142) Negative Cortez-Sachs Disease (test code = 37634) Negative Panel Notes (test code = CS_PANEL_NOTES) See Notes Report Note (test code = REPORT_NOTE) See Notes Footnotes (test code = FOOTNOTES) See Notes PDF Report (test code = EMBEDDED_PDF) PDF Justin Shaikhn 14 ([employer])2024-10-27 00:00:00* Test Item Value Reference Range Interpretation Comme nts Report Summary (test code = REPORT_SUMMARY) Negative Alpha-Thalassemia (test code = 51619) Negative Beta-Hemoglobinopathies (marian t code = 47622) Negative Mariah Disease (test code = 42302) Negative Cystic Fibrosis (test code = 63481) Negative Duchenne/Garay Muscular Dys trophy (X-linked) (test code = 08480) Negative Familial Dysautonomia (test code = 91171) Negative Fragile X Syndrome (X-linked ) (test code = 64878) Negative Galactosemia (test code = 25970) Negative Gaucher Disease (test code = 89976) Negative Medium Chain Acyl-CoA Dehydr ogenase Deficiency (test code = 20837) Negative Polycystic Kidney Disease, Autosomal Recessive (test code = 31165) Negative Klhtg-Ufgys-Bazwj Syndrome ( test code = 87551) Negative Spinal Muscular Atrophy (marian t code = 75989) Negative Cortez-Sachs Disease (test code = 44436) Negative Panel Notes (test code = CS_PANEL_NOTES) See Notes Report Note (test code = REPORT_NOTE) See Notes Footnotes (test code = FOOTNOTES) See Notes PDF Report (test code = EMBEDDED_PDF) PDF Justin Stratton, [id number] 00:00:00* Test Item Value Reference Range Interpretation Comme nts CULTURE, URINE (test code = 99761) SPECIMEN NUMBER: [id number] Justin Stratton, [id number] 00:00:00* Test Item Value Reference Range Interpretation Comme nts CULTURE, URINE (test code = 68043) SPECIMEN NUMBER: [id number] Justin Stratton, [id number] 00:00:00* Test Item Value Reference Range Interpretation Comme nts CULTURE, URINE (test code = 41448) SPECIMEN NUMBER: [id number] Justin JungLTTESHA, [id number] 00:00:00* Test Item Value Reference Range Interpretation Comme nts CULTURE, URINE (test code = 62672) SPECIMEN NUMBER: [id number] Justin JungLTTESHA, [id number] 00:00:00* Test Item Value Reference Range Interpretation Comme nts CULTURE, URINE (test code = 53966) SPECIMEN NUMBER: [id number] Justin RenaeHEMOGLOBIN [id number] 00:00:00* Test Item Value Reference Range Interpretation Comme nts HEMOGLOBIN A1 (test code = 2575) 97.6 % HEMOGLOBIN A2 (test code = 2576) 2.4 % HEMOGLOBIN F () (test c ode = 2722) 0.0 % HEMOGLOBIN S (test code = 2724) NONE % HEMOGLOBIN C (test code = 2726) NONE % OTHER HEMOGLOBIN VARIANT (te st code = 05226) NONE DETEC % PATHOLOGIST'S INTERPRETATION (test code = 2577) (NOTE) Justin Walters AustinHEMOGLOBIN [id number] 00:00:00* Test Item Value Reference Range Interpretation Comme nts HEMOGLOBIN A1 (test code = 2575) 97.6 % HEMOGLOBIN A2 (test code = 2576) 2.4 % HEMOGLOBIN F () (test c ode = 2722) 0.0 % HEMOGLOBIN S (test code = 2724) NONE % HEMOGLOBIN C (test code = 2726) NONE % OTHER HEMOGLOBIN VARIANT (te st code = 60353) NONE DETEC % PATHOLOGIST'S INTERPRETATION (test code = 2577) (NOTE) Justin Walters AustinHEMOGLOBIN [id number] 00:00:00* Test Item Value Reference Range Interpretation Comme nts HEMOGLOBIN A1 (test code = 2575) 97.6 % HEMOGLOBIN A2 (test code = 2576) 2.4 % HEMOGLOBIN F () (test c ode = 2722) 0.0 % HEMOGLOBIN S (test code = 2724) NONE % HEMOGLOBIN C (test code = 2726) NONE % OTHER HEMOGLOBIN VARIANT (te st code = 09634) NONE DETEC % PATHOLOGIST'S INTERPRETATION (test code = 2577) (NOTE) Justin Walters AustinHEMOGLOBIN [id number] 00:00:00* Test Item Value Reference Range Interpretation Comme nts HEMOGLOBIN A1 (test code = 2575) 97.6 % HEMOGLOBIN A2 (test code = 2576) 2.4 % HEMOGLOBIN F () (test c ode = 2722) 0.0 % HEMOGLOBIN S (test code = 2724) NONE % HEMOGLOBIN C (test code = 2726) NONE % OTHER HEMOGLOBIN VARIANT (te st code = 04359) NONE DETEC % PATHOLOGIST'S INTERPRETATION (test code = 2577) (NOTE) Justin Walters AustinHEMOGLOBIN [id number] 00:00:00* Test Item Value Reference Range Interpretation Comme nts HEMOGLOBIN A1 (test code = 2575) 97.6 % HEMOGLOBIN A2 (test code = 2576) 2.4 % HEMOGLOBIN F () (test c ode = 2722) 0.0 % HEMOGLOBIN S (test code = 2724) NONE % HEMOGLOBIN C (test code = 2726) NONE % OTHER HEMOGLOBIN VARIANT (te st code = 28635) NONE DETEC % PATHOLOGIST'S INTERPRETATION (test code = 2577) (NOTE) Justin Walters AustinHEMOGLOBIN [id number] 00:00:00* Test Item Value Reference Range Interpretation Comme nts HEMOGLOBIN A1 (test code = 2575) 97.6 % HEMOGLOBIN A2 (test code = 2576) 2.4 % HEMOGLOBIN F () (test c ode = 2722) 0.0 % HEMOGLOBIN S (test code = 2724) NONE % HEMOGLOBIN C (test code = 2726) NONE % OTHER HEMOGLOBIN VARIANT (te st code = 77955) NONE DETEC % PATHOLOGIST'S INTERPRETATION (test code = 2577) (NOTE) Justin RenaeCULTURE, [id number] 00:00:00* Test Item Value Reference Range Interpretation Comme nts CULTURE, URINE (test code = 12333) SPECIMEN NUMBER: [id number] Justin RenaeCULTURE, [id number] 00:00:00* Test Item Value Reference Range Interpretation Comme nts CULTURE, URINE (test code = 44841) SPECIMEN NUMBER: [id number] Justin RenaeCULTURE, [id number] 00:00:00* Test Item Value Reference Range Interpretation Comme nts CULTURE, URINE (test code = 83082) SPECIMEN NUMBER: [id number] Justin RenaeCULTURE, [id number] 00:00:00* Test Item Value Reference Range Interpretation Comme nts CULTURE, URINE (test code = 20777) SPECIMEN NUMBER: [id number] Justin RenaeCULTURE, [id number] 00:00:00* Test Item Value Reference Range Interpretation Comme nts CULTURE, URINE (test code = 69782) SPECIMEN NUMBER: [id number] Justin RenaeCULTURE, [id number] 00:00:00* Test Item Value Reference Range Interpretation Comme nts CULTURE, URINE (test code = 11300) SPECIMEN NUMBER: [id number] Justin Walters AustinCT/NG, NAAT, [id number] 00:00:00* Test Item Value Reference Range Interpretation Comme nts CHLAMYDIA, NAAT, URINE (test code = 24879) NEGATIVE GONORRHEA, NAAT, URINE (test code = 66509) NEGATIVE Justin RenaeOBSTETRIC PANEL + [id number] 00:00:00* Test Item Value Reference Range Interpretation Comme nts WBC (test code = 1001) 9.3 K/UL RBC (test code = 1002) 4.08 M/UL HEMOGLOBIN (test code = 1003) 12.1 G/DL HEMATOCRIT (test code = 1004) 36.7 % MCV (test code = 1005) 90.0 fL MCH (test code = 1006) 29.7 PG MCHC (test code = 1007) 33.0 G/DL RDW (test code = 1038) 12.2 % NEUTROPHILS (test code = 1008) 79.5 % LYMPHOCYTES (test code = 1010) 10.5 % MONOCYTES (test code = 1011) 7.2 % EOSINOPHILS (test code = 1012) 2.1 % BASOPHILS (test code = 1013) 0.4 % IMMATURE GRANULOCYTES (test code = 1036) 0.3 % NUCLEATED RBCS (test code = 1065) 0.0 /100WBC'S PLATELET COUNT (test code = 1015) 282 K/UL ABSOLUTE NEUTROPHILS (test code = 1066) 7.42 K/UL ABSOLUTE LYMPHOCYTES (test code = 1067) 0.98 K/UL ABSOLUTE MONOCYTES (test code = 1068) 0.67 K/UL ABSOLUTE EOSINOPHILS (test code = 1040) 0.20 K/UL ABSOLUTE BASOPHILS (test code = 1069) 0.04 K/UL ABS IMMATURE GRANULOCYTES (test code = 1020) 0.03 K/UL ABS NUCLEATED RBCS (test code = 67759) 0.00 K/UL BLOOD TYPE AND RH (test code = 3901) A POSITIVE ANTIBODY SCREEN (test code = 3902) NEGATIVE RUBELLA ANTIBODY SCREEN (test code = 4600) 35 IU/ML RUBELLA IgG INTERP (test code = 78994) REACTIVE HEPATITIS B SURF AG (test code = 2739) NON-REACTIVE RPR (test code = 63922) NON-REACTIVE RPR TITER (test code = 3500) NOT INDIC. TITER HIV 1/2 4TH GEN, RFLX CONF (test code = 3514) NON-REACTIVE Justin RenaeHEPATITIS C REFLEX [id number] 00:00:00* Test Item Value Reference Range Interpretation Comme nts HEPATITIS C ANTIBODY (test c ode = 4675) NON-REACTIVE Justin Walters AustinVARICELLA ZOSTER [id number] 00:00:00* Test Item Value Reference Range Interpretation Comme nts VARICELLA ZOSTER IgG (test c ode = 83293) 1.04 S/CO Justin RenaeDRUG ABUSE SCREEN 10 REFLEX [id number] 00:00:00* Test Item Value Reference Range Interpretation Comme nts AMPHETAMINES (test code = 3201) NEGATIVE BARBITURATES (test code = 3202) NEGATIVE BENZODIAZEPINES (test code = 3203) NEGATIVE CANNABINOIDS (test code = 3204) NEGATIVE COCAINE METABOLITE (test cod e = 3205) NEGATIVE OPIATES (test code = 3209) NEGATIVE OXYCODONE (test code = 06215) NEGATIVE PHENCYCLIDINE (test code = 3210) NEGATIVE METHADONE (test code = 3207) NEGATIVE BUPRENORPHINE (test code = 33687) NEGATIVE SOURCE (test code = 030152) URINE Justin RenaeCT/NG, NAAT, [id number] 00:00:00* Test Item Value Reference Range Interpretation Comme nts CHLAMYDIA, NAAT, URINE (test code = 56487) NEGATIVE GONORRHEA, NAAT, URINE (test code = 42440) NEGATIVE Justin RenaeOBSTETRIC PANEL + [id number] 00:00:00* Test Item Value Reference Range Interpretation Comme nts WBC (test code = 1001) 9.3 K/UL RBC (test code = 1002) 4.08 M/UL HEMOGLOBIN (test code = 1003) 12.1 G/DL HEMATOCRIT (test code = 1004) 36.7 % MCV (test code = 1005) 90.0 fL MCH (test code = 1006) 29.7 PG MCHC (test code = 1007) 33.0 G/DL RDW (test code = 1038) 12.2 % NEUTROPHILS (test code = 1008) 79.5 % LYMPHOCYTES (test code = 1010) 10.5 % MONOCYTES (test code = 1011) 7.2 % EOSINOPHILS (test code = 1012) 2.1 % BASOPHILS (test code = 1013) 0.4 % IMMATURE GRANULOCYTES (test code = 1036) 0.3 % NUCLEATED RBCS (test code = 1065) 0.0 /100WBC'S PLATELET COUNT (test code = 1015) 282 K/UL ABSOLUTE NEUTROPHILS (test code = 1066) 7.42 K/UL ABSOLUTE LYMPHOCYTES (test code = 1067) 0.98 K/UL ABSOLUTE MONOCYTES (test code = 1068) 0.67 K/UL ABSOLUTE EOSINOPHILS (test code = 1040) 0.20 K/UL ABSOLUTE BASOPHILS (test code = 1069) 0.04 K/UL ABS IMMATURE GRANULOCYTES (test code = 1020) 0.03 K/UL ABS NUCLEATED RBCS (test code = 53525) 0.00 K/UL BLOOD TYPE AND RH (test code = 3901) A POSITIVE ANTIBODY SCREEN (test code = 3902) NEGATIVE RUBELLA ANTIBODY SCREEN (test code = 4600) 35 IU/ML RUBELLA IgG INTERP (test code = 43511) REACTIVE HEPATITIS B SURF AG (test code = 2739) NON-REACTIVE RPR (test code = 53296) NON-REACTIVE RPR TITER (test code = 3500) NOT INDIC. TITER HIV 1/2 4TH GEN, RFLX CONF (test code = 3514) NON-REACTIVE Justin RenaeHEPATITIS C REFLEX [id number] 00:00:00* Test Item Value Reference Range Interpretation Comme nts HEPATITIS C ANTIBODY (test c ode = 4675) NON-REACTIVE Justin RenaeVARICELLA ZOSTER [id number] 00:00:00* Test Item Value Reference Range Interpretation Comme nts VARICELLA ZOSTER IgG (test c ode = 99527) 1.04 S/CO Justin RenaeDRUG ABUSE SCREEN 10 REFLEX [id number] 00:00:00* Test Item Value Reference Range Interpretation Comme nts AMPHETAMINES (test code = 3201) NEGATIVE BARBITURATES (test code = 3202) NEGATIVE BENZODIAZEPINES (test code = 3203) NEGATIVE CANNABINOIDS (test code = 3204) NEGATIVE COCAINE METABOLITE (test cod e = 3205) NEGATIVE OPIATES (test code = 3209) NEGATIVE OXYCODONE (test code = 78557) NEGATIVE PHENCYCLIDINE (test code = 3210) NEGATIVE METHADONE (test code = 3207) NEGATIVE BUPRENORPHINE (test code = 40676) NEGATIVE SOURCE (test code = 245790) URINE Justin RenaeCT/NG, NAAT, [id number] 00:00:00* Test Item Value Reference Range Interpretation Comme nts CHLAMYDIA, NAAT, URINE (test code = 90710) NEGATIVE GONORRHEA, NAAT, URINE (test code = 83804) NEGATIVE Justin RenaeOBSTETRIC PANEL + [id number] 00:00:00* Test Item Value Reference Range Interpretation Comme nts WBC (test code = 1001) 9.3 K/UL RBC (test code = 1002) 4.08 M/UL HEMOGLOBIN (test code = 1003) 12.1 G/DL HEMATOCRIT (test code = 1004) 36.7 % MCV (test code = 1005) 90.0 fL MCH (test code = 1006) 29.7 PG MCHC (test code = 1007) 33.0 G/DL RDW (test code = 1038) 12.2 % NEUTROPHILS (test code = 1008) 79.5 % LYMPHOCYTES (test code = 1010) 10.5 % MONOCYTES (test code = 1011) 7.2 % EOSINOPHILS (test code = 1012) 2.1 % BASOPHILS (test code = 1013) 0.4 % IMMATURE GRANULOCYTES (test code = 1036) 0.3 % NUCLEATED RBCS (test code = 1065) 0.0 /100WBC'S PLATELET COUNT (test code = 1015) 282 K/UL ABSOLUTE NEUTROPHILS (test code = 1066) 7.42 K/UL ABSOLUTE LYMPHOCYTES (test code = 1067) 0.98 K/UL ABSOLUTE MONOCYTES (test code = 1068) 0.67 K/UL ABSOLUTE EOSINOPHILS (test code = 1040) 0.20 K/UL ABSOLUTE BASOPHILS (test code = 1069) 0.04 K/UL ABS IMMATURE GRANULOCYTES (test code = 1020) 0.03 K/UL ABS NUCLEATED RBCS (test code = 02080) 0.00 K/UL BLOOD TYPE AND RH (test code = 3901) A POSITIVE ANTIBODY SCREEN (test code = 3902) NEGATIVE RUBELLA ANTIBODY SCREEN (test code = 4600) 35 IU/ML RUBELLA IgG INTERP (test code = 64503) REACTIVE HEPATITIS B SURF AG (test code = 2739) NON-REACTIVE RPR (test code = 12628) NON-REACTIVE RPR TITER (test code = 3500) NOT INDIC. TITER HIV 1/2 4TH GEN, RFLX CONF (test code = 3514) NON-REACTIVE Justin RenaeHEPATITIS C REFLEX [id number] 00:00:00* Test Item Value Reference Range Interpretation Comme nts HEPATITIS C ANTIBODY (test c ode = 4675) NON-REACTIVE Justin RenaeVARICELLA ZOSTER [id number] 00:00:00* Test Item Value Reference Range Interpretation Comme nts VARICELLA ZOSTER IgG (test c ode = 82285) 1.04 S/CO Justin RenaeDRUG ABUSE SCREEN 10 REFLEX [id number] 00:00:00* Test Item Value Reference Range Interpretation Comme nts AMPHETAMINES (test code = 3201) NEGATIVE BARBITURATES (test code = 3202) NEGATIVE BENZODIAZEPINES (test code = 3203) NEGATIVE CANNABINOIDS (test code = 3204) NEGATIVE COCAINE METABOLITE (test cod e = 3205) NEGATIVE OPIATES (test code = 3209) NEGATIVE OXYCODONE (test code = 00431) NEGATIVE PHENCYCLIDINE (test code = 3210) NEGATIVE METHADONE (test code = 3207) NEGATIVE BUPRENORPHINE (test code = 17818) NEGATIVE SOURCE (test code = 736284) URINE Justin RenaeCT/NG, NAAT, [id number] 00:00:00* Test Item Value Reference Range Interpretation Comme nts CHLAMYDIA, NAAT, URINE (test code = 87889) NEGATIVE GONORRHEA, NAAT, URINE (test code = 07378) NEGATIVE Justin RenaeOBSTETRIC PANEL + [id number] 00:00:00* Test Item Value Reference Range Interpretation Comme nts WBC (test code = 1001) 9.3 K/UL RBC (test code = 1002) 4.08 M/UL HEMOGLOBIN (test code = 1003) 12.1 G/DL HEMATOCRIT (test code = 1004) 36.7 % MCV (test code = 1005) 90.0 fL MCH (test code = 1006) 29.7 PG MCHC (test code = 1007) 33.0 G/DL RDW (test code = 1038) 12.2 % NEUTROPHILS (test code = 1008) 79.5 % LYMPHOCYTES (test code = 1010) 10.5 % MONOCYTES (test code = 1011) 7.2 % EOSINOPHILS (test code = 1012) 2.1 % BASOPHILS (test code = 1013) 0.4 % IMMATURE GRANULOCYTES (test code = 1036) 0.3 % NUCLEATED RBCS (test code = 1065) 0.0 /100WBC'S PLATELET COUNT (test code = 1015) 282 K/UL ABSOLUTE NEUTROPHILS (test code = 1066) 7.42 K/UL ABSOLUTE LYMPHOCYTES (test code = 1067) 0.98 K/UL ABSOLUTE MONOCYTES (test code = 1068) 0.67 K/UL ABSOLUTE EOSINOPHILS (test code = 1040) 0.20 K/UL ABSOLUTE BASOPHILS (test code = 1069) 0.04 K/UL ABS IMMATURE GRANULOCYTES (test code = 1020) 0.03 K/UL ABS NUCLEATED RBCS (test code = 81992) 0.00 K/UL BLOOD TYPE AND RH (test code = 3901) A POSITIVE ANTIBODY SCREEN (test code = 3902) NEGATIVE RUBELLA ANTIBODY SCREEN (test code = 4600) 35 IU/ML RUBELLA IgG INTERP (test code = 72090) REACTIVE HEPATITIS B SURF AG (test code = 2739) NON-REACTIVE RPR (test code = 33937) NON-REACTIVE RPR TITER (test code = 3500) NOT INDIC. TITER HIV 1/2 4TH GEN, RFLX CONF (test code = 3514) NON-REACTIVE Justin RenaeHEPATITIS C REFLEX [id number] 00:00:00* Test Item Value Reference Range Interpretation Comme nts HEPATITIS C ANTIBODY (test c ode = 4675) NON-REACTIVE Justin RenaeVARICELLA ZOSTER [id number] 00:00:00* Test Item Value Reference Range Interpretation Comme nts VARICELLA ZOSTER IgG (test c ode = 67710) 1.04 S/CO Justin RenaeDRUG ABUSE SCREEN 10 REFLEX [id number] 00:00:00* Test Item Value Reference Range Interpretation Comme nts AMPHETAMINES (test code = 3201) NEGATIVE BARBITURATES (test code = 3202) NEGATIVE BENZODIAZEPINES (test code = 3203) NEGATIVE CANNABINOIDS (test code = 3204) NEGATIVE COCAINE METABOLITE (test cod e = 3205) NEGATIVE OPIATES (test code = 3209) NEGATIVE OXYCODONE (test code = 55235) NEGATIVE PHENCYCLIDINE (test code = 3210) NEGATIVE METHADONE (test code = 3207) NEGATIVE BUPRENORPHINE (test code = 28897) NEGATIVE SOURCE (test code = 706701) URINE Justin RenaeCT/NG, NAAT, [id number] 00:00:00* Test Item Value Reference Range Interpretation Comme nts CHLAMYDIA, NAAT, URINE (test code = 18312) NEGATIVE GONORRHEA, NAAT, URINE (test code = 80914) NEGATIVE Justin F AustinOBSTETRIC PANEL + [id number] 00:00:00* Test Item Value Reference Range Interpretation Comme nts WBC (test code = 1001) 9.3 K/UL RBC (test code = 1002) 4.08 M/UL HEMOGLOBIN (test code = 1003) 12.1 G/DL HEMATOCRIT (test code = 1004) 36.7 % MCV (test code = 1005) 90.0 fL MCH (test code = 1006) 29.7 PG MCHC (test code = 1007) 33.0 G/DL RDW (test code = 1038) 12.2 % NEUTROPHILS (test code = 1008) 79.5 % LYMPHOCYTES (test code = 1010) 10.5 % MONOCYTES (test code = 1011) 7.2 % EOSINOPHILS (test code = 1012) 2.1 % BASOPHILS (test code = 1013) 0.4 % IMMATURE GRANULOCYTES (test code = 1036) 0.3 % NUCLEATED RBCS (test code = 1065) 0.0 /100WBC'S PLATELET COUNT (test code = 1015) 282 K/UL ABSOLUTE NEUTROPHILS (test code = 1066) 7.42 K/UL ABSOLUTE LYMPHOCYTES (test code = 1067) 0.98 K/UL ABSOLUTE MONOCYTES (test code = 1068) 0.67 K/UL ABSOLUTE EOSINOPHILS (test code = 1040) 0.20 K/UL ABSOLUTE BASOPHILS (test code = 1069) 0.04 K/UL ABS IMMATURE GRANULOCYTES (test code = 1020) 0.03 K/UL ABS NUCLEATED RBCS (test code = 46722) 0.00 K/UL BLOOD TYPE AND RH (test code = 3901) A POSITIVE ANTIBODY SCREEN (test code = 3902) NEGATIVE RUBELLA ANTIBODY SCREEN (test code = 4600) 35 IU/ML RUBELLA IgG INTERP (test code = 12640) REACTIVE HEPATITIS B SURF AG (test code = 2739) NON-REACTIVE RPR (test code = 46567) NON-REACTIVE RPR TITER (test code = 3500) NOT INDIC. TITER HIV 1/2 4TH GEN, RFLX CONF (test code = 3514) NON-REACTIVE Justin RenaeHEPATITIS C REFLEX [id number] 00:00:00* Test Item Value Reference Range Interpretation Comme nts HEPATITIS C ANTIBODY (test c ode = 4675) NON-REACTIVE Justin RenaeVARICELLA ZOSTER [id number] 00:00:00* Test Item Value Reference Range Interpretation Comme alyson VARICELLA ZOSTER IgG (test c ode = 00707) 1.04 S/CO Justin RenaeDRUG ABUSE SCREEN 10 REFLEX [id number] 00:00:00* Test Item Value Reference Range Interpretation Comme nts AMPHETAMINES (test code = 3201) NEGATIVE BARBITURATES (test code = 3202) NEGATIVE BENZODIAZEPINES (test code = 3203) NEGATIVE CANNABINOIDS (test code = 3204) NEGATIVE COCAINE METABOLITE (test cod e = 3205) NEGATIVE OPIATES (test code = 3209) NEGATIVE OXYCODONE (test code = 76286) NEGATIVE PHENCYCLIDINE (test code = 3210) NEGATIVE METHADONE (test code = 3207) NEGATIVE BUPRENORPHINE (test code = 58171) NEGATIVE SOURCE (test code = 161697) URINE Justin RenaeCT/NG, NAAT, [id number] 00:00:00* Test Item Value Reference Range Interpretation Comme nts CHLAMYDIA, NAAT, URINE (test code = 01752) NEGATIVE GONORRHEA, NAAT, URINE (test code = 84652) NEGATIVE Justin RenaeOBSTETRIC PANEL + [id number] 00:00:00* Test Item Value Reference Range Interpretation Comme nts WBC (test code = 1001) 9.3 K/UL RBC (test code = 1002) 4.08 M/UL HEMOGLOBIN (test code = 1003) 12.1 G/DL HEMATOCRIT (test code = 1004) 36.7 % MCV (test code = 1005) 90.0 fL MCH (test code = 1006) 29.7 PG MCHC (test code = 1007) 33.0 G/DL RDW (test code = 1038) 12.2 % NEUTROPHILS (test code = 1008) 79.5 % LYMPHOCYTES (test code = 1010) 10.5 % MONOCYTES (test code = 1011) 7.2 % EOSINOPHILS (test code = 1012) 2.1 % BASOPHILS (test code = 1013) 0.4 % IMMATURE GRANULOCYTES (test code = 1036) 0.3 % NUCLEATED RBCS (test code = 1065) 0.0 /100WBC'S PLATELET COUNT (test code = 1015) 282 K/UL ABSOLUTE NEUTROPHILS (test code = 1066) 7.42 K/UL ABSOLUTE LYMPHOCYTES (test code = 1067) 0.98 K/UL ABSOLUTE MONOCYTES (test code = 1068) 0.67 K/UL ABSOLUTE EOSINOPHILS (test code = 1040) 0.20 K/UL ABSOLUTE BASOPHILS (test code = 1069) 0.04 K/UL ABS IMMATURE GRANULOCYTES (test code = 1020) 0.03 K/UL ABS NUCLEATED RBCS (test code = 18792) 0.00 K/UL BLOOD TYPE AND RH (test code = 3901) A POSITIVE ANTIBODY SCREEN (test code = 3902) NEGATIVE RUBELLA ANTIBODY SCREEN (test code = 4600) 35 IU/ML RUBELLA IgG INTERP (test code = 49112) REACTIVE HEPATITIS B SURF AG (test code = 2739) NON-REACTIVE RPR (test code = 74597) NON-REACTIVE RPR TITER (test code = 3500) NOT INDIC. TITER HIV 1/2 4TH GEN, RFLX CONF (test code = 3514) NON-REACTIVE Justin RenaeHEPATITIS C REFLEX [id number] 00:00:00* Test Item Value Reference Range Interpretation Comme nts HEPATITIS C ANTIBODY (test c ode = 4675) NON-REACTIVE Justin RenaeVARICELLA ZOSTER [id number] 00:00:00* Test Item Value Reference Range Interpretation Comme nts VARICELLA ZOSTER IgG (test c ode = 53760) 1.04 S/CO Justin RenaeDRUG ABUSE SCREEN 10 REFLEX [id number] 00:00:00* Test Item Value Reference Range Interpretation Comme nts AMPHETAMINES (test code = 3201) NEGATIVE BARBITURATES (test code = 3202) NEGATIVE BENZODIAZEPINES (test code = 3203) NEGATIVE CANNABINOIDS (test code = 3204) NEGATIVE COCAINE METABOLITE (test cod e = 3205) NEGATIVE OPIATES (test code = 3209) NEGATIVE OXYCODONE (test code = 54556) NEGATIVE PHENCYCLIDINE (test code = 3210) NEGATIVE METHADONE (test code = 3207) NEGATIVE BUPRENORPHINE (test code = 60354) NEGATIVE SOURCE (test code = 868175) URINE Justin JungLTTESHA, [id number] 00:00:00* Test Item Value Reference Range Interpretation Comme nts CULTURE, URINE (test code = 19163) SPECIMEN NUMBER: [id number] Justin Stratton [id number] 00:00:00* Test Item Value Reference Range Interpretation Comme nts CULTURE, URINE (test code = 05188) SPECIMEN NUMBER: [id number] Justin Stratton [id number] 00:00:00* Test Item Value Reference Range Interpretation Comme nts CULTURE, URINE (test code = 95610) SPECIMEN NUMBER: [id number] Justin Stratton [id number] 00:00:00* Test Item Value Reference Range Interpretation Comme nts CULTURE, URINE (test code = 75012) SPECIMEN NUMBER: [id number] Justin Stratton [id number] 00:00:00* Test Item Value Reference Range Interpretation Comme nts CULTURE, URINE (test code = 04693) SPECIMEN NUMBER: [id number] Justin Stratton [id number] 00:00:00* Test Item Value Reference Range Interpretation Comme nts CULTURE, URINE (test code = 77368) SPECIMEN NUMBER: [id number] Justin Stratton [id number] 00:00:00* Test Item Value Reference Range Interpretation Comme nts CULTURE, URINE (test code = 37880) SPECIMEN NUMBER: [id number] Justin Stratton [id number] 00:00:00* Test Item Value Reference Range Interpretation Comme nts CULTURE, URINE (test code = 94059) SPECIMEN NUMBER: [id number] Justin Stratton [id number] 00:00:00* Test Item Value Reference Range Interpretation Comme nts CULTURE, URINE (test code = 60236) SPECIMEN NUMBER: [id number] Justin Stratton, [id number] 00:00:00* Test Item Value Reference Range Interpretation Comme nts CULTURE, URINE (test code = 24949) SPECIMEN NUMBER: [id number] Justin Stratton, [id number] 00:00:00* Test Item Value Reference Range Interpretation Comme nts CULTURE, URINE (test code = 27082) SPECIMEN NUMBER: [id number] Justin Stratton, [id number] 00:00:00* Test Item Value Reference Range Interpretation Comme nts CULTURE, URINE (test code = 76336) SPECIMEN NUMBER: [id number] Justin Stratton, [id number] 00:00:00* Test Item Value Reference Range Interpretation Comme nts CULTURE, URINE (test code = 72217) SPECIMEN NUMBER: [id number] Justin Stratton, [id number] 00:00:00* Test Item Value Reference Range Interpretation Comme nts CULTURE, URINE (test code = 17146) SPECIMEN NUMBER: [id number] Justin JungLTTSEHA, [id number] 00:00:00* Test Item Value Reference Range Interpretation Comme nts CULTURE, URINE (test code = 97330) SPECIMEN NUMBER: [id number] Justin Stratton, [id number] 00:00:00* Test Item Value Reference Range Interpretation Comme nts CULTURE, URINE (test code = 44082) SPECIMEN NUMBER: [id number] Justin Stratton, [id number] 00:00:00* Test Item Value Reference Range Interpretation Comme nts CULTURE, URINE (test code = 86537) SPECIMEN NUMBER: [id number] Justin RenaeGLUCOSE 1 HR POST 50 [id number] 00:00:00* Test Item Value Reference Range Interpretation Comme nts GLUCOSE 1 HR POST 50 GM (marian t code = 2006) 102 MG/DL Justin Walters AustinDRUG ABUSE SCREEN 10 REFLEX [id number] 00:00:00* Test Item Value Reference Range Interpretation Comme nts AMPHETAMINES (test code = 3201) NEGATIVE BARBITURATES (test code = 3202) NEGATIVE BENZODIAZEPINES (test code = 3203) NEGATIVE CANNABINOIDS (test code = 3204) NEGATIVE COCAINE METABOLITE (test cod e = 3205) NEGATIVE OPIATES (test code = 3209) NEGATIVE OXYCODONE (test code = 02612) NEGATIVE PHENCYCLIDINE (test code = 3210) NEGATIVE METHADONE (test code = 3207) NEGATIVE BUPRENORPHINE (test code = 49837) NEGATIVE SOURCE (test code = 731433) URINE Justin RenaeGLUCOSE 1 HR POST 50 [id number] 00:00:00* Test Item Value Reference Range Interpretation Comme nts GLUCOSE 1 HR POST 50 GM (marian t code = 2005) 102 MG/DL Justin Walters AustinDRUG ABUSE SCREEN 10 REFLEX [id number] 00:00:00* Test Item Value Reference Range Interpretation Comme nts AMPHETAMINES (test code = 3201) NEGATIVE BARBITURATES (test code = 3202) NEGATIVE BENZODIAZEPINES (test code = 3203) NEGATIVE CANNABINOIDS (test code = 3204) NEGATIVE COCAINE METABOLITE (test cod e = 3205) NEGATIVE OPIATES (test code = 3209) NEGATIVE OXYCODONE (test code = 16488) NEGATIVE PHENCYCLIDINE (test code = 3210) NEGATIVE METHADONE (test code = 3207) NEGATIVE BUPRENORPHINE (test code = 73919) NEGATIVE SOURCE (test code = 273422) URINE Justin Walters AustinGLUCOSE 1 HR POST 50 [id number] 00:00:00* Test Item Value Reference Range Interpretation Comme nts GLUCOSE 1 HR POST 50 GM (marian t code = 2005) 102 MG/DL Justin Walters AustinDRUG ABUSE SCREEN 10 REFLEX [id number] 00:00:00* Test Item Value Reference Range Interpretation Comme nts AMPHETAMINES (test code = 3201) NEGATIVE BARBITURATES (test code = 3202) NEGATIVE BENZODIAZEPINES (test code = 3203) NEGATIVE CANNABINOIDS (test code = 3204) NEGATIVE COCAINE METABOLITE (test cod e = 3205) NEGATIVE OPIATES (test code = 3209) NEGATIVE OXYCODONE (test code = 84985) NEGATIVE PHENCYCLIDINE (test code = 3210) NEGATIVE METHADONE (test code = 3207) NEGATIVE BUPRENORPHINE (test code = 08287) NEGATIVE SOURCE (test code = 599619) URINE Justin RenaeGLUCOSE 1 HR POST 50 [id number] 00:00:00* Test Item Value Reference Range Interpretation Comme nts GLUCOSE 1 HR POST 50 GM (marian t code = 2005) 102 MG/DL Justin Walters AustinDRUG ABUSE SCREEN 10 REFLEX [id number] 00:00:00* Test Item Value Reference Range Interpretation Comme nts AMPHETAMINES (test code = 3201) NEGATIVE BARBITURATES (test code = 3202) NEGATIVE BENZODIAZEPINES (test code = 3203) NEGATIVE CANNABINOIDS (test code = 3204) NEGATIVE COCAINE METABOLITE (test cod e = 3205) NEGATIVE OPIATES (test code = 3209) NEGATIVE OXYCODONE (test code = 81224) NEGATIVE PHENCYCLIDINE (test code = 3210) NEGATIVE METHADONE (test code = 3207) NEGATIVE BUPRENORPHINE (test code = 51450) NEGATIVE SOURCE (test code = 371977) URINE Justin F AustinGLUCOSE 1 HR POST 50 [id number] 00:00:00* Test Item Value Reference Range Interpretation Comme nts GLUCOSE 1 HR POST 50 GM (marian t code = 2005) 102 MG/DL Justin F AustinDRUG ABUSE SCREEN 10 REFLEX [id number] 00:00:00* Test Item Value Reference Range Interpretation Comme nts AMPHETAMINES (test code = 3201) NEGATIVE BARBITURATES (test code = 3202) NEGATIVE BENZODIAZEPINES (test code = 3203) NEGATIVE CANNABINOIDS (test code = 3204) NEGATIVE COCAINE METABOLITE (test cod e = 3205) NEGATIVE OPIATES (test code = 3209) NEGATIVE OXYCODONE (test code = 23107) NEGATIVE PHENCYCLIDINE (test code = 3210) NEGATIVE METHADONE (test code = 3207) NEGATIVE BUPRENORPHINE (test code = 49880) NEGATIVE SOURCE (test code = 350722) URINE Justin F AustinGLUCOSE 1 HR POST 50 [id number] 00:00:00* Test Item Value Reference Range Interpretation Comme nts GLUCOSE 1 HR POST 50 GM (marian t code = 2005) 102 MG/DL Justin Walters AustinDRUG ABUSE SCREEN 10 REFLEX [id number] 00:00:00* Test Item Value Reference Range Interpretation Comme nts AMPHETAMINES (test code = 3201) NEGATIVE BARBITURATES (test code = 3202) NEGATIVE BENZODIAZEPINES (test code = 3203) NEGATIVE CANNABINOIDS (test code = 3204) NEGATIVE COCAINE METABOLITE (test cod e = 3205) NEGATIVE OPIATES (test code = 3209) NEGATIVE OXYCODONE (test code = 44502) NEGATIVE PHENCYCLIDINE (test code = 3210) NEGATIVE METHADONE (test code = 3207) NEGATIVE BUPRENORPHINE (test code = 48991) NEGATIVE SOURCE (test code = 775180) URINE Justin F AustinGLUCOSE 1 HR POST 50 [id number] 00:00:00* Test Item Value Reference Range Interpretation Comme nts GLUCOSE 1 HR POST 50 GM (marian t code = 2005) 102 MG/DL Justin F AustinDRUG ABUSE SCREEN 10 REFLEX [id number] 00:00:00* Test Item Value Reference Range Interpretation Comme nts AMPHETAMINES (test code = 3201) NEGATIVE BARBITURATES (test code = 3202) NEGATIVE BENZODIAZEPINES (test code = 3203) NEGATIVE CANNABINOIDS (test code = 3204) NEGATIVE COCAINE METABOLITE (test cod e = 3205) NEGATIVE OPIATES (test code = 3209) NEGATIVE OXYCODONE (test code = 73667) NEGATIVE PHENCYCLIDINE (test code = 3210) NEGATIVE METHADONE (test code = 3207) NEGATIVE BUPRENORPHINE (test code = 47349) NEGATIVE SOURCE (test code = 556415) URINE Justin F AustinGLUCOSE 1 HR POST 50 [id number] 00:00:00* Test Item Value Reference Range Interpretation Comme nts GLUCOSE 1 HR POST 50 GM (marian t code = 2005) 102 MG/DL Justin F AustinDRUG ABUSE SCREEN 10 REFLEX [id number] 00:00:00* Test Item Value Reference Range Interpretation Comme nts AMPHETAMINES (test code = 3201) NEGATIVE BARBITURATES (test code = 3202) NEGATIVE BENZODIAZEPINES (test code = 3203) NEGATIVE CANNABINOIDS (test code = 3204) NEGATIVE COCAINE METABOLITE (test cod e = 3205) NEGATIVE OPIATES (test code = 3209) NEGATIVE OXYCODONE (test code = 90257) NEGATIVE PHENCYCLIDINE (test code = 3210) NEGATIVE METHADONE (test code = 3207) NEGATIVE BUPRENORPHINE (test code = 96315) NEGATIVE SOURCE (test code = 023850) URINE Justin F AustinGLUCOSE 1 HR POST 50 [id number] 00:00:00* Test Item Value Reference Range Interpretation Comme nts GLUCOSE 1 HR POST 50 GM (marian t code = 2005) 102 MG/DL Justin F AustinDRUG ABUSE SCREEN 10 REFLEX [id number] 00:00:00* Test Item Value Reference Range Interpretation Comme nts AMPHETAMINES (test code = 3201) NEGATIVE BARBITURATES (test code = 3202) NEGATIVE BENZODIAZEPINES (test code = 3203) NEGATIVE CANNABINOIDS (test code = 3204) NEGATIVE COCAINE METABOLITE (test cod e = 3205) NEGATIVE OPIATES (test code = 3209) NEGATIVE OXYCODONE (test code = 69634) NEGATIVE PHENCYCLIDINE (test code = 3210) NEGATIVE METHADONE (test code = 3207) NEGATIVE BUPRENORPHINE (test code = 55359) NEGATIVE SOURCE (test code = 640914) URINE Justin Ruiz NIPT [id number] 00:00:00* Test Item Value Reference Range Interpretation Comme nts Report Summary (test code = REPORT_SUMMARY) LOW RISK Report Note (test code = REPORT_NOTE) See Notes Trisomy 13 Age-Based Risk Text (test code = NPT_T13_AGE_BASED_RISK_TEX T) <1/10,000 (<0.01%) Trisomy 13 Risk Score Text (test code = NPT_T13_RISK_SCORE_TEXT) <1/10,000 (<0.01%) Trisomy 13 Result Text (test code = NPT_T13_RESULT_TEXT) Low Risk Trisomy 18 Age-Based Risk Text (test code = NPT_T18_AGE_BASED_RISK_TEX T) <1/10,000 (<0.01%) Trisomy 18 Risk Score Text (test code = NPT_T18_RISK_SCORE_TEXT) <1/10,000 (<0.01%) Trisomy 18 Result Text (test code = NPT_T18_RESULT_TEXT) Low Risk Trisomy 21 Age-Based Risk Text (test code = NPT_T21_AGE_BASED_RISK_TEX T) 1/1,527 (0.07%) Trisomy 21 Risk Score Text (test code = NPT_T21_RISK_SCORE_TEXT) <1/10,000 (<0.01%) Trisomy 21 Result Text (test code = NPT_T21_RESULT_TEXT) Low Risk Monosomy X Age-Based Risk Text (test code = NPT_X_AGE_BASED_RISK_TEXT) 1/10,000 (0.01%) Monosomy X Risk Score Text (test code = NPT_X_RISK_SCORE_TEXT) <1/10,000 (<0.01%) Monosomy X Result Text (test code = NPT_X_RESULT_TEXT) Low Risk 22q11.2 Deletion Syndrome Population-Based Risk Text (test code = NPT_22Q_POP_BASED_RISK_TEX T) 1/2,000 22q11.2 Deletion Syndrome Risk Score Text (test code = NPT_22Q_RISK_SCORE_TEXT) 1/12,000 22q11.2 Deletion Syndrome Result Text (test code = NPT_22Q_RESULT_TEXT) Low Risk Triploidy Result Text (test code = NPT_TRI_RESULT_TEXT) Low Risk Gender of Fetus (test code = GENDER_OF_FETUS) Male Fraction (test code = FETAL_FRACTION_STRING) 21.4% Footnotes (test code = FOOTNOTES) See Notes PDF Report (test code = EMBEDDED_PDF) PDF Justin Ruiz NIPT [id number] 00:00:00* Test Item Value Reference Range Interpretation Comme nts Report Summary (test code = REPORT_SUMMARY) LOW RISK Report Note (test code = REPORT_NOTE) See Notes Trisomy 13 Age-Based Risk Text (test code = NPT_T13_AGE_BASED_RISK_TEX T) <1/10,000 (<0.01%) Trisomy 13 Risk Score Text (test code = NPT_T13_RISK_SCORE_TEXT) <1/10,000 (<0.01%) Trisomy 13 Result Text (test code = NPT_T13_RESULT_TEXT) Low Risk Trisomy 18 Age-Based Risk Text (test code = NPT_T18_AGE_BASED_RISK_TEX T) <1/10,000 (<0.01%) Trisomy 18 Risk Score Text (test code = NPT_T18_RISK_SCORE_TEXT) <1/10,000 (<0.01%) Trisomy 18 Result Text (test code = NPT_T18_RESULT_TEXT) Low Risk Trisomy 21 Age-Based Risk Text (test code = NPT_T21_AGE_BASED_RISK_TEX T) 1/,527 (0.07%) Trisomy 21 Risk Score Text (test code = NPT_T21_RISK_SCORE_TEXT) <1/10,000 (<0.01%) Trisomy 21 Result Text (test code = NPT_T21_RESULT_TEXT) Low Risk Monosomy X Age-Based Risk Text (test code = NPT_X_AGE_BASED_RISK_TEXT) 1/10,000 (0.01%) Monosomy X Risk Score Text (test code = NPT_X_RISK_SCORE_TEXT) <1/10,000 (<0.01%) Monosomy X Result Text (test code = NPT_X_RESULT_TEXT) Low Risk 22q11.2 Deletion Syndrome Population-Based Risk Text (test code = NPT_22Q_POP_BASED_RISK_TEX T) 10/29, 22q11.2 Deletion Syndrome Risk Score Text (test code = NPT_22Q_RISK_SCORE_TEXT) 11/08, 22q11.2 Deletion Syndrome Result Text (test code = NPT_22Q_RESULT_TEXT) Low Risk Triploidy Result Text (test code = NPT_TRI_RESULT_TEXT) Low Risk Gender of Fetus (test code = GENDER_OF_FETUS) Male Fraction (test code = FETAL_FRACTION_STRING) 21.4% Footnotes (test code = FOOTNOTES) See Notes PDF Report (test code = EMBEDDED_PDF) [facility] [id number] 00:00:00* Test Item Value Reference Range Interpretation Comme nts Report Summary (test code = REPORT_SUMMARY) LOW RISK Report Note (test code = REPORT_NOTE) See Notes Trisomy 13 Age-Based Risk Text (test code = NPT_T13_AGE_BASED_RISK_TEX T) <1/10,000 (<0.01%) Trisomy 13 Risk Score Text (test code = NPT_T13_RISK_SCORE_TEXT) <1/10,000 (<0.01%) Trisomy 13 Result Text (test code = NPT_T13_RESULT_TEXT) Low Risk Trisomy 18 Age-Based Risk Text (test code = NPT_T18_AGE_BASED_RISK_TEX T) <1/10,000 (<0.01%) Trisomy 18 Risk Score Text (test code = NPT_T18_RISK_SCORE_TEXT) <1/10,000 (<0.01%) Trisomy 18 Result Text (test code = NPT_T18_RESULT_TEXT) Low Risk Trisomy 21 Age-Based Risk Text (test code = NPT_T21_AGE_BASED_RISK_TEX T) 1,527 (0.07%) Trisomy 21 Risk Score Text (test code = NPT_T21_RISK_SCORE_TEXT) <1/10,000 (<0.01%) Trisomy 21 Result Text (test code = NPT_T21_RESULT_TEXT) Low Risk Monosomy X Age-Based Risk Text (test code = NPT_X_AGE_BASED_RISK_TEXT) 1/10,000 (0.01%) Monosomy X Risk Score Text (test code = NPT_X_RISK_SCORE_TEXT) <1/10,000 (<0.01%) Monosomy X Result Text (test code = NPT_X_RESULT_TEXT) Low Risk 22q11.2 Deletion Syndrome Population-Based Risk Text (test code = NPT_22Q_POP_BASED_RISK_TEX T) 10/29, 22q11.2 Deletion Syndrome Risk Score Text (test code = NPT_22Q_RISK_SCORE_TEXT) 11/08, 22q11.2 Deletion Syndrome Result Text (test code = NPT_22Q_RESULT_TEXT) Low Risk Triploidy Result Text (test code = NPT_TRI_RESULT_TEXT) Low Risk Gender of Fetus (test code = GENDER_OF_FETUS) Male Fraction (test code = FETAL_FRACTION_STRING) 21.4% Footnotes (test code = FOOTNOTES) See Notes PDF Report (test code = EMBEDDED_PDF) PDF Justin Toddlaurent NIPT [id number] 00:00:00* Test Item Value Reference Range Interpretation Comme nts Report Summary (test code = REPORT_SUMMARY) LOW RISK Report Note (test code = REPORT_NOTE) See Notes Trisomy 13 Age-Based Risk Text (test code = NPT_T13_AGE_BASED_RISK_TEX T) <1/10,000 (<0.01%) Trisomy 13 Risk Score Text (test code = NPT_T13_RISK_SCORE_TEXT) <1/10,000 (<0.01%) Trisomy 13 Result Text (test code = NPT_T13_RESULT_TEXT) Low Risk Trisomy 18 Age-Based Risk Text (test code = NPT_T18_AGE_BASED_RISK_TEX T) <1/10,000 (<0.01%) Trisomy 18 Risk Score Text (test code = NPT_T18_RISK_SCORE_TEXT) <1/10,000 (<0.01%) Trisomy 18 Result Text (test code = NPT_T18_RESULT_TEXT) Low Risk Trisomy 21 Age-Based Risk Text (test code = NPT_T21_AGE_BASED_RISK_TEX T) 1/,527 (0.07%) Trisomy 21 Risk Score Text (test code = NPT_T21_RISK_SCORE_TEXT) <1/10,000 (<0.01%) Trisomy 21 Result Text (test code = NPT_T21_RESULT_TEXT) Low Risk Monosomy X Age-Based Risk Text (test code = NPT_X_AGE_BASED_RISK_TEXT) 1/10,000 (0.01%) Monosomy X Risk Score Text (test code = NPT_X_RISK_SCORE_TEXT) <1/10,000 (<0.01%) Monosomy X Result Text (test code = NPT_X_RESULT_TEXT) Low Risk 22q11.2 Deletion Syndrome Population-Based Risk Text (test code = NPT_22Q_POP_BASED_RISK_TEX T) 1/2,000 22q11.2 Deletion Syndrome Risk Score Text (test code = NPT_22Q_RISK_SCORE_TEXT) 1/12,000 22q11.2 Deletion Syndrome Result Text (test code = NPT_22Q_RESULT_TEXT) Low Risk Triploidy Result Text (test code = NPT_TRI_RESULT_TEXT) Low Risk Gender of Fetus (test code = GENDER_OF_FETUS) Male Fraction (test code = FETAL_FRACTION_STRING) 21.4% Footnotes (test code = FOOTNOTES) See Notes PDF Report (test code = EMBEDDED_PDF) PDF Justin Ruiz NIPT [id number] 00:00:00* Test Item Value Reference Range Interpretation Comme nts Report Summary (test code = REPORT_SUMMARY) LOW RISK Report Note (test code = REPORT_NOTE) See Notes Trisomy 13 Age-Based Risk Text (test code = NPT_T13_AGE_BASED_RISK_TEX T) <1/10,000 (<0.01%) Trisomy 13 Risk Score Text (test code = NPT_T13_RISK_SCORE_TEXT) <1/10,000 (<0.01%) Trisomy 13 Result Text (test code = NPT_T13_RESULT_TEXT) Low Risk Trisomy 18 Age-Based Risk Text (test code = NPT_T18_AGE_BASED_RISK_TEX T) <1/10,000 (<0.01%) Trisomy 18 Risk Score Text (test code = NPT_T18_RISK_SCORE_TEXT) <1/10,000 (<0.01%) Trisomy 18 Result Text (test code = NPT_T18_RESULT_TEXT) Low Risk Trisomy 21 Age-Based Risk Text (test code = NPT_T21_AGE_BASED_RISK_TEX T) 1/,527 (0.07%) Trisomy 21 Risk Score Text (test code = NPT_T21_RISK_SCORE_TEXT) <1/10,000 (<0.01%) Trisomy 21 Result Text (test code = NPT_T21_RESULT_TEXT) Low Risk Monosomy X Age-Based Risk Text (test code = NPT_X_AGE_BASED_RISK_TEXT) 1/10,000 (0.01%) Monosomy X Risk Score Text (test code = NPT_X_RISK_SCORE_TEXT) <1/10,000 (<0.01%) Monosomy X Result Text (test code = NPT_X_RESULT_TEXT) Low Risk 22q11.2 Deletion Syndrome Population-Based Risk Text (test code = NPT_22Q_POP_BASED_RISK_TEX T) 1/2,000 22q11.2 Deletion Syndrome Risk Score Text (test code = NPT_22Q_RISK_SCORE_TEXT) 1/12,000 22q11.2 Deletion Syndrome Result Text (test code = NPT_22Q_RESULT_TEXT) Low Risk Triploidy Result Text (test code = NPT_TRI_RESULT_TEXT) Low Risk Gender of Fetus (test code = GENDER_OF_FETUS) Male Fraction (test code = FETAL_FRACTION_STRING) 21.4% Footnotes (test code = FOOTNOTES) See Notes PDF Report (test code = EMBEDDED_PDF) PDF Justin Walters Annemarietasialaurent NIPT [id number] 00:00:00* Test Item Value Reference Range Interpretation Comme nts Report Summary (test code = REPORT_SUMMARY) LOW RISK Report Note (test code = REPORT_NOTE) See Notes Trisomy 13 Age-Based Risk Text (test code = NPT_T13_AGE_BASED_RISK_TEX T) <1/10,000 (<0.01%) Trisomy 13 Risk Score Text (test code = NPT_T13_RISK_SCORE_TEXT) <1/10,000 (<0.01%) Trisomy 13 Result Text (test code = NPT_T13_RESULT_TEXT) Low Risk Trisomy 18 Age-Based Risk Text (test code = NPT_T18_AGE_BASED_RISK_TEX T) <1/10,000 (<0.01%) Trisomy 18 Risk Score Text (test code = NPT_T18_RISK_SCORE_TEXT) <1/10,000 (<0.01%) Trisomy 18 Result Text (test code = NPT_T18_RESULT_TEXT) Low Risk Trisomy 21 Age-Based Risk Text (test code = NPT_T21_AGE_BASED_RISK_TEX T) 1,527 (0.07%) Trisomy 21 Risk Score Text (test code = NPT_T21_RISK_SCORE_TEXT) <1/10,000 (<0.01%) Trisomy 21 Result Text (test code = NPT_T21_RESULT_TEXT) Low Risk Monosomy X Age-Based Risk Text (test code = NPT_X_AGE_BASED_RISK_TEXT) 1/10,000 (0.01%) Monosomy X Risk Score Text (test code = NPT_X_RISK_SCORE_TEXT) <1/10,000 (<0.01%) Monosomy X Result Text (test code = NPT_X_RESULT_TEXT) Low Risk 22q11.2 Deletion Syndrome Population-Based Risk Text (test code = NPT_22Q_POP_BASED_RISK_TEX T) 1/2,000 22q11.2 Deletion Syndrome Risk Score Text (test code = NPT_22Q_RISK_SCORE_TEXT) 12,000 22q11.2 Deletion Syndrome Result Text (test code = NPT_22Q_RESULT_TEXT) Low Risk Triploidy Result Text (test code = NPT_TRI_RESULT_TEXT) Low Risk Gender of Fetus (test code = GENDER_OF_FETUS) Male Fraction (test code = FETAL_FRACTION_STRING) 21.4% Footnotes (test code = FOOTNOTES) See Notes PDF Report (test code = EMBEDDED_PDF) CARINA Ruiz NIPT [id number] 00:00:00* Test Item Value Reference Range Interpretation Comme nts Report Summary (test code = REPORT_SUMMARY) LOW RISK Report Note (test code = REPORT_NOTE) See Notes Trisomy 13 Age-Based Risk Text (test code = NPT_T13_AGE_BASED_RISK_TEX T) <1/10,000 (<0.01%) Trisomy 13 Risk Score Text (test code = NPT_T13_RISK_SCORE_TEXT) <1/10,000 (<0.01%) Trisomy 13 Result Text (test code = NPT_T13_RESULT_TEXT) Low Risk Trisomy 18 Age-Based Risk Text (test code = NPT_T18_AGE_BASED_RISK_TEX T) <1/10,000 (<0.01%) Trisomy 18 Risk Score Text (test code = NPT_T18_RISK_SCORE_TEXT) <1/10,000 (<0.01%) Trisomy 18 Result Text (test code = NPT_T18_RESULT_TEXT) Low Risk Trisomy 21 Age-Based Risk Text (test code = NPT_T21_AGE_BASED_RISK_TEX T) 1/1,527 (0.07%) Trisomy 21 Risk Score Text (test code = NPT_T21_RISK_SCORE_TEXT) <1/10,000 (<0.01%) Trisomy 21 Result Text (test code = NPT_T21_RESULT_TEXT) Low Risk Monosomy X Age-Based Risk Text (test code = NPT_X_AGE_BASED_RISK_TEXT) 1/10,000 (0.01%) Monosomy X Risk Score Text (test code = NPT_X_RISK_SCORE_TEXT) <1/10,000 (<0.01%) Monosomy X Result Text (test code = NPT_X_RESULT_TEXT) Low Risk 22q11.2 Deletion Syndrome Population-Based Risk Text (test code = NPT_22Q_POP_BASED_RISK_TEX T) 1/2,000 22q11.2 Deletion Syndrome Risk Score Text (test code = NPT_22Q_RISK_SCORE_TEXT) /12,000 22q11.2 Deletion Syndrome Result Text (test code = NPT_22Q_RESULT_TEXT) Low Risk Triploidy Result Text (test code = NPT_TRI_RESULT_TEXT) Low Risk Gender of Fetus (test code = GENDER_OF_FETUS) Male Fraction (test code = FETAL_FRACTION_STRING) 21.4% Footnotes (test code = FOOTNOTES) See Notes PDF Report (test code = EMBEDDED_PDF) PDF Justin Ruiz NIPT [id number] 00:00:00* Test Item Value Reference Range Interpretation Comme nts Report Summary (test code = REPORT_SUMMARY) LOW RISK Report Note (test code = REPORT_NOTE) See Notes Trisomy 13 Age-Based Risk Text (test code = NPT_T13_AGE_BASED_RISK_TEX T) <1/10,000 (<0.01%) Trisomy 13 Risk Score Text (test code = NPT_T13_RISK_SCORE_TEXT) <1/10,000 (<0.01%) Trisomy 13 Result Text (test code = NPT_T13_RESULT_TEXT) Low Risk Trisomy 18 Age-Based Risk Text (test code = NPT_T18_AGE_BASED_RISK_TEX T) <1/10,000 (<0.01%) Trisomy 18 Risk Score Text (test code = NPT_T18_RISK_SCORE_TEXT) <1/10,000 (<0.01%) Trisomy 18 Result Text (test code = NPT_T18_RESULT_TEXT) Low Risk Trisomy 21 Age-Based Risk Text (test code = NPT_T21_AGE_BASED_RISK_TEX T) 1/,527 (0.07%) Trisomy 21 Risk Score Text (test code = NPT_T21_RISK_SCORE_TEXT) <1/10,000 (<0.01%) Trisomy 21 Result Text (test code = NPT_T21_RESULT_TEXT) Low Risk Monosomy X Age-Based Risk Text (test code = NPT_X_AGE_BASED_RISK_TEXT) 1/10,000 (0.01%) Monosomy X Risk Score Text (test code = NPT_X_RISK_SCORE_TEXT) <1/10,000 (<0.01%) Monosomy X Result Text (test code = NPT_X_RESULT_TEXT) Low Risk 22q11.2 Deletion Syndrome Population-Based Risk Text (test code = NPT_22Q_POP_BASED_RISK_TEX T) /2,000 22q11.2 Deletion Syndrome Risk Score Text (test code = NPT_22Q_RISK_SCORE_TEXT) 12,000 22q11.2 Deletion Syndrome Result Text (test code = NPT_22Q_RESULT_TEXT) Low Risk Triploidy Result Text (test code = NPT_TRI_RESULT_TEXT) Low Risk Gender of Fetus (test code = GENDER_OF_FETUS) Male Fraction (test code = FETAL_FRACTION_STRING) 21.4% Footnotes (test code = FOOTNOTES) See Notes PDF Report (test code = EMBEDDED_PDF) PDF Justin Walters Joseph NIPT [id number] 00:00:00* Test Item Value Reference Range Interpretation Comme nts Report Summary (test code = REPORT_SUMMARY) LOW RISK Report Note (test code = REPORT_NOTE) See Notes Trisomy 13 Age-Based Risk Text (test code = NPT_T13_AGE_BASED_RISK_TEX T) <1/10,000 (<0.01%) Trisomy 13 Risk Score Text (test code = NPT_T13_RISK_SCORE_TEXT) <1/10,000 (<0.01%) Trisomy 13 Result Text (test code = NPT_T13_RESULT_TEXT) Low Risk Trisomy 18 Age-Based Risk Text (test code = NPT_T18_AGE_BASED_RISK_TEX T) <1/10,000 (<0.01%) Trisomy 18 Risk Score Text (test code = NPT_T18_RISK_SCORE_TEXT) <1/10,000 (<0.01%) Trisomy 18 Result Text (test code = NPT_T18_RESULT_TEXT) Low Risk Trisomy 21 Age-Based Risk Text (test code = NPT_T21_AGE_BASED_RISK_TEX T) 10/28,527 (0.07%) Trisomy 21 Risk Score Text (test code = NPT_T21_RISK_SCORE_TEXT) <1/10,000 (<0.01%) Trisomy 21 Result Text (test code = NPT_T21_RESULT_TEXT) Low Risk Monosomy X Age-Based Risk Text (test code = NPT_X_AGE_BASED_RISK_TEXT) 1/10,000 (0.01%) Monosomy X Risk Score Text (test code = NPT_X_RISK_SCORE_TEXT) <1/10,000 (<0.01%) Monosomy X Result Text (test code = NPT_X_RESULT_TEXT) Low Risk 22q11.2 Deletion Syndrome Population-Based Risk Text (test code = NPT_22Q_POP_BASED_RISK_TEX T) /,000 22q11.2 Deletion Syndrome Risk Score Text (test code = NPT_22Q_RISK_SCORE_TEXT) 11/08, 22q11.2 Deletion Syndrome Result Text (test code = NPT_22Q_RESULT_TEXT) Low Risk Triploidy Result Text (test code = NPT_TRI_RESULT_TEXT) Low Risk Gender of Fetus (test code = GENDER_OF_FETUS) Male Fraction (test code = FETAL_FRACTION_STRING) 21.4% Footnotes (test code = FOOTNOTES) See Notes PDF Report (test code = EMBEDDED_PDF) PDF Justin Ruiz NIPT [id number] 00:00:00* Test Item Value Reference Range Interpretation Comme nts Report Summary (test code = REPORT_SUMMARY) LOW RISK Report Note (test code = REPORT_NOTE) See Notes Trisomy 13 Age-Based Risk Text (test code = NPT_T13_AGE_BASED_RISK_TEX T) <1/10,000 (<0.01%) Trisomy 13 Risk Score Text (test code = NPT_T13_RISK_SCORE_TEXT) <1/10,000 (<0.01%) Trisomy 13 Result Text (test code = NPT_T13_RESULT_TEXT) Low Risk Trisomy 18 Age-Based Risk Text (test code = NPT_T18_AGE_BASED_RISK_TEX T) <1/10,000 (<0.01%) Trisomy 18 Risk Score Text (test code = NPT_T18_RISK_SCORE_TEXT) <1/10,000 (<0.01%) Trisomy 18 Result Text (test code = NPT_T18_RESULT_TEXT) Low Risk Trisomy 21 Age-Based Risk Text (test code = NPT_T21_AGE_BASED_RISK_TEX T) 1/,527 (0.07%) Trisomy 21 Risk Score Text (test code = NPT_T21_RISK_SCORE_TEXT) <1/10,000 (<0.01%) Trisomy 21 Result Text (test code = NPT_T21_RESULT_TEXT) Low Risk Monosomy X Age-Based Risk Text (test code = NPT_X_AGE_BASED_RISK_TEXT) 1/10,000 (0.01%) Monosomy X Risk Score Text (test code = NPT_X_RISK_SCORE_TEXT) <1/10,000 (<0.01%) Monosomy X Result Text (test code = NPT_X_RESULT_TEXT) Low Risk 22q11.2 Deletion Syndrome Population-Based Risk Text (test code = NPT_22Q_POP_BASED_RISK_TEX T) 1/2,000 22q11.2 Deletion Syndrome Risk Score Text (test code = NPT_22Q_RISK_SCORE_TEXT) 1/12,000 22q11.2 Deletion Syndrome Result Text (test code = NPT_22Q_RESULT_TEXT) Low Risk Triploidy Result Text (test code = NPT_TRI_RESULT_TEXT) Low Risk Gender of Fetus (test code = GENDER_OF_FETUS) Male Fraction (test code = FETAL_FRACTION_STRING) 21.4% Footnotes (test code = FOOTNOTES) See Notes PDF Report (test code = EMBEDDED_PDF) PDF Justin Walters [place]HEMOGLOBIN [id number] 00:00:00* Test Item Value Reference Range Interpretation Comme nts HEMOGLOBIN A1 (test code = 2575) 97.7 % HEMOGLOBIN A2 (test code = 2576) 2.3 % HEMOGLOBIN F () (test c ode = 2722) 0.0 % HEMOGLOBIN S (test code = 2724) NONE % HEMOGLOBIN C (test code = 2726) NONE % OTHER HEMOGLOBIN VARIANT (te st code = 03324) NONE DETEC % PATHOLOGIST'S INTERPRETATION (test code = 2577) (NOTE) Justin Walters [place]HEMOGLOBIN [id number] 00:00:00* Test Item Value Reference Range Interpretation Comme nts HEMOGLOBIN A1 (test code = 2575) 97.7 % HEMOGLOBIN A2 (test code = 2576) 2.3 % HEMOGLOBIN F () (test c ode = 2722) 0.0 % HEMOGLOBIN S (test code = 2724) NONE % HEMOGLOBIN C (test code = 2726) NONE % OTHER HEMOGLOBIN VARIANT (te st code = 63805) NONE DETEC % PATHOLOGIST'S INTERPRETATION (test code = 2577) (NOTE) Justin Walters [place]HEMOGLOBIN [id number] 00:00:00* Test Item Value Reference Range Interpretation Comme nts HEMOGLOBIN A1 (test code = 2575) 97.7 % HEMOGLOBIN A2 (test code = 2576) 2.3 % HEMOGLOBIN F () (test c ode = 2722) 0.0 % HEMOGLOBIN S (test code = 2724) NONE % HEMOGLOBIN C (test code = 2726) NONE % OTHER HEMOGLOBIN VARIANT (te st code = 70013) NONE DETEC % PATHOLOGIST'S INTERPRETATION (test code = 2577) (NOTE) Justin Walters [place]HEMOGLOBIN [id number] 00:00:00* Test Item Value Reference Range Interpretation Comme nts HEMOGLOBIN A1 (test code = 2575) 97.7 % HEMOGLOBIN A2 (test code = 2576) 2.3 % HEMOGLOBIN F () (test c ode = 2722) 0.0 % HEMOGLOBIN S (test code = 2724) NONE % HEMOGLOBIN C (test code = 2726) NONE % OTHER HEMOGLOBIN VARIANT (te st code = 36707) NONE DETEC % PATHOLOGIST'S INTERPRETATION (test code = 2577) (NOTE) Justin Walters [place]HEMO[place] [id number] 00:00:00* Test Item Value Reference Range Interpretation Comme nts HEMOGLOBIN A1 (test code = 2575) 97.7 % HEMOGLOBIN A2 (test code = 2576) 2.3 % HEMOGLOBIN F () (test c ode = 2722) 0.0 % HEMOGLOBIN S (test code = 2724) NONE % HEMOGLOBIN C (test code = 2726) NONE % OTHER HEMOGLOBIN VARIANT (te st code = 20120) NONE DETEC % PATHOLOGIST'S INTERPRETATION (test code = 2577) (NOTE) Justin Walters [place]HEMO[place]IN [id number] 00:00:00* Test Item Value Reference Range Interpretation Comme nts HEMOGLOBIN A1 (test code = 2575) 97.7 % HEMOGLOBIN A2 (test code = 2576) 2.3 % HEMOGLOBIN F () (test c ode = 2722) 0.0 % HEMOGLOBIN S (test code = 2724) NONE % HEMOGLOBIN C (test code = 2726) NONE % OTHER HEMOGLOBIN VARIANT (te st code = 77272) NONE DETEC % PATHOLOGIST'S INTERPRETATION (test code = 2577) (NOTE) Justin Walters [place]HEMO[place] [id number] 00:00:00* Test Item Value Reference Range Interpretation Comme nts HEMOGLOBIN A1 (test code = 2575) 97.7 % HEMOGLOBIN A2 (test code = 2576) 2.3 % HEMOGLOBIN F () (test c ode = 2722) 0.0 % HEMOGLOBIN S (test code = 2724) NONE % HEMOGLOBIN C (test code = 2726) NONE % OTHER HEMOGLOBIN VARIANT (te st code = 25658) NONE DETEC % PATHOLOGIST'S INTERPRETATION (test code = 2577) (NOTE) Justin Walters [place]HEMO[place] [id number] 00:00:00* Test Item Value Reference Range Interpretation Comme nts HEMOGLOBIN A1 (test code = 2575) 97.7 % HEMOGLOBIN A2 (test code = 2576) 2.3 % HEMOGLOBIN F () (test c ode = 2722) 0.0 % HEMOGLOBIN S (test code = 2724) NONE % HEMOGLOBIN C (test code = 2726) NONE % OTHER HEMOGLOBIN VARIANT (te st code = 45935) NONE DETEC % PATHOLOGIST'S INTERPRETATION (test code = 2577) (NOTE) Justin Walters [place]HEMO[place] [id number] 00:00:00* Test Item Value Reference Range Interpretation Comme nts HEMOGLOBIN A1 (test code = 2575) 97.7 % HEMOGLOBIN A2 (test code = 2576) 2.3 % HEMOGLOBIN F () (test c ode = 2722) 0.0 % HEMOGLOBIN S (test code = 2724) NONE % HEMOGLOBIN C (test code = 2726) NONE % OTHER HEMOGLOBIN VARIANT (te st code = 44525) NONE DETEC % PATHOLOGIST'S INTERPRETATION (test code = 2577) (NOTE) Justin F AustinHEMOGLOBIN [id number] 00:00:00* Test Item Value Reference Range Interpretation Comme nts HEMOGLOBIN A1 (test code = 2575) 97.7 % HEMOGLOBIN A2 (test code = 2576) 2.3 % HEMOGLOBIN F () (test c ode = 2722) 0.0 % HEMOGLOBIN S (test code = 2724) NONE % HEMOGLOBIN C (test code = 2726) NONE % OTHER HEMOGLOBIN VARIANT (te st code = 00523) NONE DETEC % PATHOLOGIST'S INTERPRETATION (test code = 2577) (NOTE) Justin RenaeOBSTETRIC PANEL + [id number] 00:00:00* Test Item Value Reference Range Interpretation Comme nts WBC (test code = 1001) 8.0 K/UL RBC (test code = 1002) 3.55 M/UL HEMOGLOBIN (test code = 1003) 11.1 G/DL HEMATOCRIT (test code = 1004) 32.9 % MCV (test code = 1005) 92.7 fL MCH (test code = 1006) 31.3 PG MCHC (test code = 1007) 33.7 G/DL RDW (test code = 1038) 12.5 % NEUTROPHILS (test code = 1008) 79.2 % LYMPHOCYTES (test code = 1010) 12.1 % MONOCYTES (test code = 1011) 7.0 % EOSINOPHILS (test code = 1012) 1.0 % BASOPHILS (test code = 1013) 0.3 % IMMATURE GRANULOCYTES (test code = 1036) 0.4 % NUCLEATED RBCS (test code = 1065) 0.0 /100WBC'S PLATELET COUNT (test code = 1015) 200 K/UL ABSOLUTE NEUTROPHILS (test code = 1066) 6.31 K/UL ABSOLUTE LYMPHOCYTES (test code = 1067) 0.96 K/UL ABSOLUTE MONOCYTES (test code = 1068) 0.56 K/UL ABSOLUTE EOSINOPHILS (test code = 1040) 0.08 K/UL ABSOLUTE BASOPHILS (test code = 1069) 0.02 K/UL ABS IMMATURE GRANULOCYTES (test code = 1020) 0.03 K/UL ABS NUCLEATED RBCS (test code = 26455) 0.00 K/UL BLOOD TYPE AND RH (test code = 3901) A POSITIVE ANTIBODY SCREEN (test code = 3902) NEGATIVE RUBELLA ANTIBODY SCREEN (test code = 4600) 39 IU/ML RUBELLA IgG INTERP (test code = 99814) REACTIVE HEPATITIS B SURF AG (test code = 2739) NON-REACTIVE RPR (test code = 75229) NON-REACTIVE RPR TITER (test code = 3500) NOT INDIC. TITER HIV 1/2 4TH GEN, RFLX CONF (test code = 3514) NON-REACTIVE Justin Walters AustinHEPATITIS C REFLEX [id number] 00:00:00* Test Item Value Reference Range Interpretation Comme nts HEPATITIS C ANTIBODY (test c ode = 4675) NON-REACTIVE Justin Walters AustinVARICELLA ZOSTER [id number] 00:00:00* Test Item Value Reference Range Interpretation Comme nts VARICELLA ZOSTER IgG (test c ode = 71673) 130 INDEX Justin Walters AustinOBSTETRIC PANEL + [id number] 00:00:00* Test Item Value Reference Range Interpretation Comme nts WBC (test code = 1001) 8.0 K/UL RBC (test code = 1002) 3.55 M/UL HEMOGLOBIN (test code = 1003) 11.1 G/DL HEMATOCRIT (test code = 1004) 32.9 % MCV (test code = 1005) 92.7 fL MCH (test code = 1006) 31.3 PG MCHC (test code = 1007) 33.7 G/DL RDW (test code = 1038) 12.5 % NEUTROPHILS (test code = 1008) 79.2 % LYMPHOCYTES (test code = 1010) 12.1 % MONOCYTES (test code = 1011) 7.0 % EOSINOPHILS (test code = 1012) 1.0 % BASOPHILS (test code = 1013) 0.3 % IMMATURE GRANULOCYTES (test code = 1036) 0.4 % NUCLEATED RBCS (test code = 1065) 0.0 /100WBC'S PLATELET COUNT (test code = 1015) 200 K/UL ABSOLUTE NEUTROPHILS (test code = 1066) 6.31 K/UL ABSOLUTE LYMPHOCYTES (test code = 1067) 0.96 K/UL ABSOLUTE MONOCYTES (test code = 1068) 0.56 K/UL ABSOLUTE EOSINOPHILS (test code = 1040) 0.08 K/UL ABSOLUTE BASOPHILS (test code = 1069) 0.02 K/UL ABS IMMATURE GRANULOCYTES (test code = 1020) 0.03 K/UL ABS NUCLEATED RBCS (test code = 02710) 0.00 K/UL BLOOD TYPE AND RH (test code = 3901) A POSITIVE ANTIBODY SCREEN (test code = 3902) NEGATIVE RUBELLA ANTIBODY SCREEN (test code = 4600) 39 IU/ML RUBELLA IgG INTERP (test code = 07289) REACTIVE HEPATITIS B SURF AG (test code = 2739) NON-REACTIVE RPR (test code = 35156) NON-REACTIVE RPR TITER (test code = 3500) NOT INDIC. TITER HIV 1/2 4TH GEN, RFLX CONF (test code = 3514) NON-REACTIVE Justin RenaeHEPATITIS C REFLEX [id number] 00:00:00* Test Item Value Reference Range Interpretation Comme nts HEPATITIS C ANTIBODY (test c ode = 4675) NON-REACTIVE Justin RenaeVARICELLA ZOSTER [id number] 00:00:00* Test Item Value Reference Range Interpretation Comme nts VARICELLA ZOSTER IgG (test c ode = 22178) 130 INDEX Justin RenaeOBSTETRIC PANEL + [id number] 00:00:00* Test Item Value Reference Range Interpretation Comme nts WBC (test code = 1001) 8.0 K/UL RBC (test code = 1002) 3.55 M/UL HEMOGLOBIN (test code = 1003) 11.1 G/DL HEMATOCRIT (test code = 1004) 32.9 % MCV (test code = 1005) 92.7 fL MCH (test code = 1006) 31.3 PG MCHC (test code = 1007) 33.7 G/DL RDW (test code = 1038) 12.5 % NEUTROPHILS (test code = 1008) 79.2 % LYMPHOCYTES (test code = 1010) 12.1 % MONOCYTES (test code = 1011) 7.0 % EOSINOPHILS (test code = 1012) 1.0 % BASOPHILS (test code = 1013) 0.3 % IMMATURE GRANULOCYTES (test code = 1036) 0.4 % NUCLEATED RBCS (test code = 1065) 0.0 /100WBC'S PLATELET COUNT (test code = 1015) 200 K/UL ABSOLUTE NEUTROPHILS (test code = 1066) 6.31 K/UL ABSOLUTE LYMPHOCYTES (test code = 1067) 0.96 K/UL ABSOLUTE MONOCYTES (test code = 1068) 0.56 K/UL ABSOLUTE EOSINOPHILS (test code = 1040) 0.08 K/UL ABSOLUTE BASOPHILS (test code = 1069) 0.02 K/UL ABS IMMATURE GRANULOCYTES (test code = 1020) 0.03 K/UL ABS NUCLEATED RBCS (test code = 50660) 0.00 K/UL BLOOD TYPE AND RH (test code = 3901) A POSITIVE ANTIBODY SCREEN (test code = 3902) NEGATIVE RUBELLA ANTIBODY SCREEN (test code = 4600) 39 IU/ML RUBELLA IgG INTERP (test code = 32647) REACTIVE HEPATITIS B SURF AG (test code = 2739) NON-REACTIVE RPR (test code = 61974) NON-REACTIVE RPR TITER (test code = 3500) NOT INDIC. TITER HIV 1/2 4TH GEN, RFLX CONF (test code = 3514) NON-REACTIVE Justin Walters AustinHEPATITIS C REFLEX [id number] 00:00:00* Test Item Value Reference Range Interpretation Comme nts HEPATITIS C ANTIBODY (test c ode = 4675) NON-REACTIVE Justin Walters AustinVARICELLA ZOSTER [id number] 00:00:00* Test Item Value Reference Range Interpretation Comme nts VARICELLA ZOSTER IgG (test c ode = 41905) 130 INDEX Justin Walters AustinOBSTETRIC PANEL + [id number] 00:00:00* Test Item Value Reference Range Interpretation Comme nts WBC (test code = 1001) 8.0 K/UL RBC (test code = 1002) 3.55 M/UL HEMOGLOBIN (test code = 1003) 11.1 G/DL HEMATOCRIT (test code = 1004) 32.9 % MCV (test code = 1005) 92.7 fL MCH (test code = 1006) 31.3 PG MCHC (test code = 1007) 33.7 G/DL RDW (test code = 1038) 12.5 % NEUTROPHILS (test code = 1008) 79.2 % LYMPHOCYTES (test code = 1010) 12.1 % MONOCYTES (test code = 1011) 7.0 % EOSINOPHILS (test code = 1012) 1.0 % BASOPHILS (test code = 1013) 0.3 % IMMATURE GRANULOCYTES (test code = 1036) 0.4 % NUCLEATED RBCS (test code = 1065) 0.0 /100WBC'S PLATELET COUNT (test code = 1015) 200 K/UL ABSOLUTE NEUTROPHILS (test code = 1066) 6.31 K/UL ABSOLUTE LYMPHOCYTES (test code = 1067) 0.96 K/UL ABSOLUTE MONOCYTES (test code = 1068) 0.56 K/UL ABSOLUTE EOSINOPHILS (test code = 1040) 0.08 K/UL ABSOLUTE BASOPHILS (test code = 1069) 0.02 K/UL ABS IMMATURE GRANULOCYTES (test code = 1020) 0.03 K/UL ABS NUCLEATED RBCS (test code = 41167) 0.00 K/UL BLOOD TYPE AND RH (test code = 3901) A POSITIVE ANTIBODY SCREEN (test code = 3902) NEGATIVE RUBELLA ANTIBODY SCREEN (test code = 4600) 39 IU/ML RUBELLA IgG INTERP (test code = 70874) REACTIVE HEPATITIS B SURF AG (test code = 2739) NON-REACTIVE RPR (test code = 75786) NON-REACTIVE RPR TITER (test code = 3500) NOT INDIC. TITER HIV 1/2 4TH GEN, RFLX CONF (test code = 3514) NON-REACTIVE Justin Walters AustinHEPATITIS C REFLEX [id number] 00:00:00* Test Item Value Reference Range Interpretation Comme nts HEPATITIS C ANTIBODY (test c ode = 4675) NON-REACTIVE Justin Walters AustinVARICELLA ZOSTER [id number] 00:00:00* Test Item Value Reference Range Interpretation Comme nts VARICELLA ZOSTER IgG (test c ode = 99418) 130 INDEX Justin Walters AustinOBSTETRIC PANEL + [id number] 00:00:00* Test Item Value Reference Range Interpretation Comme nts WBC (test code = 1001) 8.0 K/UL RBC (test code = 1002) 3.55 M/UL HEMOGLOBIN (test code = 1003) 11.1 G/DL HEMATOCRIT (test code = 1004) 32.9 % MCV (test code = 1005) 92.7 fL MCH (test code = 1006) 31.3 PG MCHC (test code = 1007) 33.7 G/DL RDW (test code = 1038) 12.5 % NEUTROPHILS (test code = 1008) 79.2 % LYMPHOCYTES (test code = 1010) 12.1 % MONOCYTES (test code = 1011) 7.0 % EOSINOPHILS (test code = 1012) 1.0 % BASOPHILS (test code = 1013) 0.3 % IMMATURE GRANULOCYTES (test code = 1036) 0.4 % NUCLEATED RBCS (test code = 1065) 0.0 /100WBC'S PLATELET COUNT (test code = 1015) 200 K/UL ABSOLUTE NEUTROPHILS (test code = 1066) 6.31 K/UL ABSOLUTE LYMPHOCYTES (test code = 1067) 0.96 K/UL ABSOLUTE MONOCYTES (test code = 1068) 0.56 K/UL ABSOLUTE EOSINOPHILS (test code = 1040) 0.08 K/UL ABSOLUTE BASOPHILS (test code = 1069) 0.02 K/UL ABS IMMATURE GRANULOCYTES (test code = 1020) 0.03 K/UL ABS NUCLEATED RBCS (test code = 82355) 0.00 K/UL BLOOD TYPE AND RH (test code = 3901) A POSITIVE ANTIBODY SCREEN (test code = 3902) NEGATIVE RUBELLA ANTIBODY SCREEN (test code = 4600) 39 IU/ML RUBELLA IgG INTERP (test code = 14717) REACTIVE HEPATITIS B SURF AG (test code = 2739) NON-REACTIVE RPR (test code = 67709) NON-REACTIVE RPR TITER (test code = 3500) NOT INDIC. TITER HIV 1/2 4TH GEN, RFLX CONF (test code = 3514) NON-REACTIVE Justin Walters AustinHEPATITIS C REFLEX [id number] 00:00:00* Test Item Value Reference Range Interpretation Comme nts HEPATITIS C ANTIBODY (test c ode = 4675) NON-REACTIVE Justin Walters AustinVARICELLA ZOSTER [id number] 00:00:00* Test Item Value Reference Range Interpretation Comme nts VARICELLA ZOSTER IgG (test c ode = 61364) 130 INDEX Justin Walters AustinOBSTETRIC PANEL + [id number] 00:00:00* Test Item Value Reference Range Interpretation Comme nts WBC (test code = 1001) 8.0 K/UL RBC (test code = 1002) 3.55 M/UL HEMOGLOBIN (test code = 1003) 11.1 G/DL HEMATOCRIT (test code = 1004) 32.9 % MCV (test code = 1005) 92.7 fL MCH (test code = 1006) 31.3 PG MCHC (test code = 1007) 33.7 G/DL RDW (test code = 1038) 12.5 % NEUTROPHILS (test code = 1008) 79.2 % LYMPHOCYTES (test code = 1010) 12.1 % MONOCYTES (test code = 1011) 7.0 % EOSINOPHILS (test code = 1012) 1.0 % BASOPHILS (test code = 1013) 0.3 % IMMATURE GRANULOCYTES (test code = 1036) 0.4 % NUCLEATED RBCS (test code = 1065) 0.0 /100WBC'S PLATELET COUNT (test code = 1015) 200 K/UL ABSOLUTE NEUTROPHILS (test code = 1066) 6.31 K/UL ABSOLUTE LYMPHOCYTES (test code = 1067) 0.96 K/UL ABSOLUTE MONOCYTES (test code = 1068) 0.56 K/UL ABSOLUTE EOSINOPHILS (test code = 1040) 0.08 K/UL ABSOLUTE BASOPHILS (test code = 1069) 0.02 K/UL ABS IMMATURE GRANULOCYTES (test code = 1020) 0.03 K/UL ABS NUCLEATED RBCS (test code = 65201) 0.00 K/UL BLOOD TYPE AND RH (test code = 3901) A POSITIVE ANTIBODY SCREEN (test code = 3902) NEGATIVE RUBELLA ANTIBODY SCREEN (test code = 4600) 39 IU/ML RUBELLA IgG INTERP (test code = 40627) REACTIVE HEPATITIS B SURF AG (test code = 2739) NON-REACTIVE RPR (test code = 37434) NON-REACTIVE RPR TITER (test code = 3500) NOT INDIC. TITER HIV 1/2 4TH GEN, RFLX CONF (test code = 3514) NON-REACTIVE Justin RenaeHEPATITIS C REFLEX [id number] 00:00:00* Test Item Value Reference Range Interpretation Comme nts HEPATITIS C ANTIBODY (test c ode = 4675) NON-REACTIVE Justin Walters AustinVARICELLA ZOSTER [id number] 00:00:00* Test Item Value Reference Range Interpretation Comme nts VARICELLA ZOSTER IgG (test c ode = 64926) 130 INDEX Justin Walters AustinOBSTETRIC PANEL + [id number] 00:00:00* Test Item Value Reference Range Interpretation Comme nts WBC (test code = 1001) 8.0 K/UL RBC (test code = 1002) 3.55 M/UL HEMOGLOBIN (test code = 1003) 11.1 G/DL HEMATOCRIT (test code = 1004) 32.9 % MCV (test code = 1005) 92.7 fL MCH (test code = 1006) 31.3 PG MCHC (test code = 1007) 33.7 G/DL RDW (test code = 1038) 12.5 % NEUTROPHILS (test code = 1008) 79.2 % LYMPHOCYTES (test code = 1010) 12.1 % MONOCYTES (test code = 1011) 7.0 % EOSINOPHILS (test code = 1012) 1.0 % BASOPHILS (test code = 1013) 0.3 % IMMATURE GRANULOCYTES (test code = 1036) 0.4 % NUCLEATED RBCS (test code = 1065) 0.0 /100WBC'S PLATELET COUNT (test code = 1015) 200 K/UL ABSOLUTE NEUTROPHILS (test code = 1066) 6.31 K/UL ABSOLUTE LYMPHOCYTES (test code = 1067) 0.96 K/UL ABSOLUTE MONOCYTES (test code = 1068) 0.56 K/UL ABSOLUTE EOSINOPHILS (test code = 1040) 0.08 K/UL ABSOLUTE BASOPHILS (test code = 1069) 0.02 K/UL ABS IMMATURE GRANULOCYTES (test code = 1020) 0.03 K/UL ABS NUCLEATED RBCS (test code = 52805) 0.00 K/UL BLOOD TYPE AND RH (test code = 3901) A POSITIVE ANTIBODY SCREEN (test code = 3902) NEGATIVE RUBELLA ANTIBODY SCREEN (test code = 4600) 39 IU/ML RUBELLA IgG INTERP (test code = 59855) REACTIVE HEPATITIS B SURF AG (test code = 2739) NON-REACTIVE RPR (test code = 61402) NON-REACTIVE RPR TITER (test code = 3500) NOT INDIC. TITER HIV 1/2 4TH GEN, RFLX CONF (test code = 3514) NON-REACTIVE Justin Walters AustinHEPATITIS C REFLEX [id number] 00:00:00* Test Item Value Reference Range Interpretation Comme nts HEPATITIS C ANTIBODY (test c ode = 4675) NON-REACTIVE Justin Walters AustinVARICELLA ZOSTER [id number] 00:00:00* Test Item Value Reference Range Interpretation Comme nts VARICELLA ZOSTER IgG (test c ode = 39419) 130 INDEX Justin Walters AustinOBSTETRIC PANEL + [id number] 00:00:00* Test Item Value Reference Range Interpretation Comme nts WBC (test code = 1001) 8.0 K/UL RBC (test code = 1002) 3.55 M/UL HEMOGLOBIN (test code = 1003) 11.1 G/DL HEMATOCRIT (test code = 1004) 32.9 % MCV (test code = 1005) 92.7 fL MCH (test code = 1006) 31.3 PG MCHC (test code = 1007) 33.7 G/DL RDW (test code = 1038) 12.5 % NEUTROPHILS (test code = 1008) 79.2 % LYMPHOCYTES (test code = 1010) 12.1 % MONOCYTES (test code = 1011) 7.0 % EOSINOPHILS (test code = 1012) 1.0 % BASOPHILS (test code = 1013) 0.3 % IMMATURE GRANULOCYTES (test code = 1036) 0.4 % NUCLEATED RBCS (test code = 1065) 0.0 /100WBC'S PLATELET COUNT (test code = 1015) 200 K/UL ABSOLUTE NEUTROPHILS (test code = 1066) 6.31 K/UL ABSOLUTE LYMPHOCYTES (test code = 1067) 0.96 K/UL ABSOLUTE MONOCYTES (test code = 1068) 0.56 K/UL ABSOLUTE EOSINOPHILS (test code = 1040) 0.08 K/UL ABSOLUTE BASOPHILS (test code = 1069) 0.02 K/UL ABS IMMATURE GRANULOCYTES (test code = 1020) 0.03 K/UL ABS NUCLEATED RBCS (test code = 29202) 0.00 K/UL BLOOD TYPE AND RH (test code = 3901) A POSITIVE ANTIBODY SCREEN (test code = 3902) NEGATIVE RUBELLA ANTIBODY SCREEN (test code = 4600) 39 IU/ML RUBELLA IgG INTERP (test code = 89523) REACTIVE HEPATITIS B SURF AG (test code = 2739) NON-REACTIVE RPR (test code = 69666) NON-REACTIVE RPR TITER (test code = 3500) NOT INDIC. TITER HIV 1/2 4TH GEN, RFLX CONF (test code = 3514) NON-REACTIVE Justin RenaeHEPATITIS C REFLEX [id number] 00:00:00* Test Item Value Reference Range Interpretation Comme nts HEPATITIS C ANTIBODY (test c ode = 4675) NON-REACTIVE Justin Walters AustinVARICELLA ZOSTER [id number] 00:00:00* Test Item Value Reference Range Interpretation Comme nts VARICELLA ZOSTER IgG (test c ode = 63184) 130 INDEX Justin Walters AustinOBSTETRIC PANEL + [id number] 00:00:00* Test Item Value Reference Range Interpretation Comme nts WBC (test code = 1001) 8.0 K/UL RBC (test code = 1002) 3.55 M/UL HEMOGLOBIN (test code = 1003) 11.1 G/DL HEMATOCRIT (test code = 1004) 32.9 % MCV (test code = 1005) 92.7 fL MCH (test code = 1006) 31.3 PG MCHC (test code = 1007) 33.7 G/DL RDW (test code = 1038) 12.5 % NEUTROPHILS (test code = 1008) 79.2 % LYMPHOCYTES (test code = 1010) 12.1 % MONOCYTES (test code = 1011) 7.0 % EOSINOPHILS (test code = 1012) 1.0 % BASOPHILS (test code = 1013) 0.3 % IMMATURE GRANULOCYTES (test code = 1036) 0.4 % NUCLEATED RBCS (test code = 1065) 0.0 /100WBC'S PLATELET COUNT (test code = 1015) 200 K/UL ABSOLUTE NEUTROPHILS (test code = 1066) 6.31 K/UL ABSOLUTE LYMPHOCYTES (test code = 1067) 0.96 K/UL ABSOLUTE MONOCYTES (test code = 1068) 0.56 K/UL ABSOLUTE EOSINOPHILS (test code = 1040) 0.08 K/UL ABSOLUTE BASOPHILS (test code = 1069) 0.02 K/UL ABS IMMATURE GRANULOCYTES (test code = 1020) 0.03 K/UL ABS NUCLEATED RBCS (test code = 81510) 0.00 K/UL BLOOD TYPE AND RH (test code = 3901) A POSITIVE ANTIBODY SCREEN (test code = 3902) NEGATIVE RUBELLA ANTIBODY SCREEN (test code = 4600) 39 IU/ML RUBELLA IgG INTERP (test code = 25814) REACTIVE HEPATITIS B SURF AG (test code = 2739) NON-REACTIVE RPR (test code = 51912) NON-REACTIVE RPR TITER (test code = 3500) NOT INDIC. TITER HIV 1/2 4TH GEN, RFLX CONF (test code = 3514) NON-REACTIVE Justin RenaeHEPATITIS C REFLEX [id number] 00:00:00* Test Item Value Reference Range Interpretation Comme nts HEPATITIS C ANTIBODY (test c ode = 1770) NON-REACTIVE Justin RenaeVARICELLA ZOSTER [id number] 00:00:00* Test Item Value Reference Range Interpretation Comme nts VARICELLA ZOSTER IgG (test c ode = 87779) 130 INDEX Justin RenaeOBSTETRIC PANEL + [id number] 00:00:00* Test Item Value Reference Range Interpretation Comme nts WBC (test code = 1001) 8.0 K/UL RBC (test code = 1002) 3.55 M/UL HEMOGLOBIN (test code = 1003) 11.1 G/DL HEMATOCRIT (test code = 1004) 32.9 % MCV (test code = 1005) 92.7 fL MCH (test code = 1006) 31.3 PG MCHC (test code = 1007) 33.7 G/DL RDW (test code = 1038) 12.5 % NEUTROPHILS (test code = 1008) 79.2 % LYMPHOCYTES (test code = 1010) 12.1 % MONOCYTES (test code = 1011) 7.0 % EOSINOPHILS (test code = 1012) 1.0 % BASOPHILS (test code = 1013) 0.3 % IMMATURE GRANULOCYTES (test code = 1036) 0.4 % NUCLEATED RBCS (test code = 1065) 0.0 /100WBC'S PLATELET COUNT (test code = 1015) 200 K/UL ABSOLUTE NEUTROPHILS (test code = 1066) 6.31 K/UL ABSOLUTE LYMPHOCYTES (test code = 1067) 0.96 K/UL ABSOLUTE MONOCYTES (test code = 1068) 0.56 K/UL ABSOLUTE EOSINOPHILS (test code = 1040) 0.08 K/UL ABSOLUTE BASOPHILS (test code = 1069) 0.02 K/UL ABS IMMATURE GRANULOCYTES (test code = 1020) 0.03 K/UL ABS NUCLEATED RBCS (test code = 85817) 0.00 K/UL BLOOD TYPE AND RH (test code = 3901) A POSITIVE ANTIBODY SCREEN (test code = 3902) NEGATIVE RUBELLA ANTIBODY SCREEN (test code = 4600) 39 IU/ML RUBELLA IgG INTERP (test code = 89758) REACTIVE HEPATITIS B SURF AG (test code = 2739) NON-REACTIVE RPR (test code = 45321) NON-REACTIVE RPR TITER (test code = 3500) NOT INDIC. TITER HIV 1/2 4TH GEN, RFLX CONF (test code = 3514) NON-REACTIVE Justin RenaeHEPATITIS C REFLEX [id number] 00:00:00* Test Item Value Reference Range Interpretation Comme nts HEPATITIS C ANTIBODY (test c ode = 4675) NON-REACTIVE Justin RenaeVARICELLA ZOSTER [id number] 00:00:00* Test Item Value Reference Range Interpretation Comme nts VARICELLA ZOSTER IgG (test c ode = 77195) 130 INDEX Justin Renae Notes Date/[facility]25-02-28 00:00:00 [facility]2025-01-30 00:00:00 [facility]2024-12-31 00:00:00 [facility]2024-12-03 00:00:00 [facility]2024-11-06 00:00:00 [facility]2024-11-01 00:00:00 [facility]2024-05-23 00:00:00 [facility]2024-05-10 00:00:00 [facility]2024-04-25 00:00:00 [facility]
--- NOTE | 2025-02-27 00:24 | ER ---
Nurse's Notes [facility] Name: Olinda Acuna Age: 19 yrs Sex: Female : 2005 Arrival Date: 02/26/2025 Time: 23:26 Bed 1 Private MD: Diagnosis: Vaginal bleeding in third trimester, resolved Presentation: 02/26 23:43 Chief complaint: Patient states: vaginal bleed that started today. Patient states she cp4 has been spotting but no heavy bleeding and is 32 weeks . OB is at [facility]. Coronavirus screen: Client denies travel out of the [place] in the last 14 days. At this time, the client does not indicate any symptoms associated with coronavirus-19. Ebola Screen: Patient negative for fever greater than or equal to 101.5 degrees Fahrenheit, and additional compatible Ebola Virus Disease symptoms Patient denies exposure to infectious person. Patient denies travel to an Ebola-affected area in the 21 days before illness onset. No symptoms or risks identified at this time. Initial Sepsis Screen: Does the patient meet any 2 criteria? No. Patient's initial sepsis screen is negative. Does the patient have a suspected source of infection? No. Patient's initial sepsis screen is negative. Risk Assessment: Do you want to hurt yourself or someone else? Patient reports no desire to harm self or others. Onset of symptoms was February 26, 2025. 23:43 Method Of Arrival: Ambulatory cp4 23:43 Acuity: MAY 3 cp4 Triage Assessment: 23:48 General: Appears in no apparent distress. comfortable, Behavior is calm, cooperative, cp4 appropriate for age. Pain: Denies pain. EENT: No signs and/or symptoms were reported regarding the EENT system. Neuro: Level of Consciousness is awake, alert, obeys commands, Oriented to person, place, time, situation. Cardiovascular: Patient's skin is warm and dry. Respiratory: Airway is patent Respiratory effort is even, unlabored. GI: No deficits noted. : Reports vaginal bleeding that is spotty. Derm: No signs and/or symptoms reported regarding the dermatologic system. Musculoskeletal: No signs and/or symptoms reported regarding the musculoskeletal system. 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 - Infectious Disease History:: Denies. - Social history:: Smoking status: Patient denies any tobacco usage or history of. Screenin:49 [facility] ED Fall Risk Assessment (Adult) History of falling in the last 3 months, cp4 including since admission No falls in past 3 months (0 pts) Confusion or Disorientation No (0 pts) Intoxicated or Sedated No (0 pts) Impaired Gait No (0 pts) Mobility Assist Device Used No (0 pt) Altered Elimination No (0 pt) Score/Fall Risk Level 0 - 2 = Low Risk Oriented to surroundings, Maintained a safe environment, Assessed \T\ reinforced patient's understanding of fall precautions, Hourly rounding (assess needs \T\ fall precautionary measures) done. Abuse screen: Denies threats or abuse. Denies injuries from another. Nutritional screening: No deficits noted. Tuberculosis screening: No symptoms or risk factors identified. Assessment: 23:49 Reassessment: No changes from previously documented assessment. cp4 Vital Signs: 23:43 BP 111 / 62; Pulse 85; Resp 18; Temp 98.1; Pulse Ox 99% ; Weight 53.98 kg; Height 4 ft. cp4 11 in. ; Pain 0/10; 05/03 00:46 BP 114 / 72; Pulse 74; Resp 18; Pulse Ox 99% ; cp4 05/02 23:43 Body Mass Index 24.03 (53.98 kg, 149.86 cm) - Percentile 73.1 % cp4 05/ 23:43 Pain Scale: Adult cp4 ED Course: 02/26 23:29 Patient arrived in ED. jj6 23:42 Mary Anne Campbell is Primary Nurse. cp4 23:43 Wily Donis MD is Attending Physician. sp3 23:48 Triage completed. cp4 23:48 Arm band placed on right wrist. Patient placed in waiting room. cp4 23:49 Bed in low position. Call light in reach. Side rails up X 1. cp4 23:49 Inserted saline lock: 20 gauge in left antecubital area, using aseptic technique. Blood cp4 collected. Flushed with 10 mL NS. 02/27 00:27 US OB Limited In Process Unspecified. EDMS 00:47 Provided Education on: third trimester.. cp4 00:47 No provider procedures requiring assistance completed. intact, bleeding controlled, No cp4 redness/swelling at site. Pressure dressing applied. Administered Medications: No medications were administered Medication: 02/26 23:49 VIS not applicable for this client. cp4 Outcome: 02/27 00:23 Discharge ordered by . sp3 00:46 Discharged to home ambulatory, cp4 00:46 Condition: stable 00:46 Discharge instructions given to patient, family, Instructed on discharge instructions, follow up and referral plans. Demonstrated understanding of instructions, follow-up care, 00:47 Patient left the ED. cp4 Signatures: Dispatcher [employer] EDWily Tamayo MD MD sp3 Kathy Santoyo Christina cp4
--- NOTE | 2025-02-27 00:24 | EDPHYS ---
Physician Documentation [facility] Name: Olinda Acuna Age: 19 yrs Sex: Female : 2005 Arrival Date: 02/26/2025 Time: 23:26 Bed 1 Private MD: ED Physician Wily Donis HPI: 02/26 23:59 This 19 yrs old Female presents to ER via Ambulatory with complaints of Vaginal sp3 Bleeding, 32 WKS GESTATION. 23:59 19-year-old female G2, P1 at 32 weeks now presents to the ED with chief complaint sp3 vaginal spotting that has not resolved. Patient still has good movement. No other symptoms including pain, back pain, dysuria, vaginal fluid drainage, or any other signs or symptoms reported. Patient reports no recent intercourse.. 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 - Infectious Disease History:: Denies. - Social history:: Smoking status: Patient denies any tobacco usage or history of. ROS: 02/27 00:02 Constitutional: Negative for fever, chills, and weight loss, Eyes: Negative for injury, sp3 pain, redness, and discharge, ENT: Negative for injury, pain, and discharge, Neck: Negative for injury, pain, and swelling, Cardiovascular: Negative for chest pain, palpitations, and edema, Respiratory: Negative for shortness of breath, cough, wheezing, and pleuritic chest pain, Abdomen/GI: Negative for abdominal pain, nausea, vomiting, diarrhea, and constipation, Back: Negative for injury and pain, MS/Extremity: Negative for injury and deformity, Skin: Negative for injury, rash, and discoloration, Neuro: Negative for headache, weakness, numbness, tingling, and seizure, Psych: Negative for depression, anxiety, suicide ideation, homicidal ideation, and hallucinations, Allergy/Immunology: Negative for hives, rash, and allergies, Endocrine: Negative for neck swelling, polydipsia, polyuria, polyphagia, and marked weight changes, All other systems are negative, Exam: 00:05 Constitutional: This is a well developed, well nourished patient who is awake, alert, sp3 and in no acute distress. Head/Face: Normocephalic, atraumatic. Eyes: Pupils equal round and reactive to light, extra-ocular motions intact. Lids and lashes normal. Conjunctiva and sclera are non-icteric and not injected. Cornea within normal limits. Periorbital areas with no swelling, redness, or edema. Chest/axilla: Normal chest wall appearance and motion. Nontender with no deformity. No lesions are appreciated. Cardiovascular: Regular rate and rhythm with a normal S1 and S2. No gallops, murmurs, or rubs. Normal PMI, no JVD. No pulse deficits. Respiratory: Lungs have equal breath sounds bilaterally, clear to auscultation and percussion. No rales, rhonchi or wheezes noted. No increased work of breathing, no retractions or nasal flaring. Abdomen/GI: Soft, non-tender, with normal bowel sounds. No distension or tympany. No guarding or rebound. No evidence of tenderness throughout. Back: No spinal tenderness. No costovertebral tenderness. Full range of motion. Skin: Warm, dry with normal turgor. Normal color with no rashes, no lesions, and no evidence of cellulitis. MS/ Extremity: Pulses equal, no cyanosis. Neurovascular intact. Full, normal range of motion. Neuro: Awake and alert, GCS 15, oriented to person, place, time, and situation. Cranial nerves II-XII grossly intact. Motor strength 5/5 in all extremities. Sensory grossly intact. Cerebellar exam normal. Normal gait. 00:05 : Exam deferred as she is not currently having any fluid or bleeding., Vital Signs: 02/26 23:43 BP 111 / 62; Pulse 85; Resp 18; Temp 98.1; Pulse Ox 99% ; Weight 53.98 kg; Height 4 ft. cp4 11 in. ; Pain 0/10; 02/27 00:46 BP 114 / 72; Pulse 74; Resp 18; Pulse Ox 99% ; cp4 02/26 23:43 Body Mass Index 24.03 (53.98 kg, 149.86 cm) - Percentile 73.1 % cp4 02/26 23:43 Pain Scale: Adult cp4 MDM: 02/26 23:43 Medical Screening Exam initiated sp3 02/27 00:06 Data reviewed: vital signs, nurses notes, radiologic studies. ED course: 19-year-old sp3 female at 32 weeks with a resolved vaginal spotting. We will obtain ultrasound and if all looks good with the fetus, we will safely discharge her to OB follow-up.. 00:23 ED course: Normal ultrasound reported from tech. We will safely discharge patient home sp3 at this time.. 02/26 23:54 Order name: US OB Limited sp3 Administered Medications: No medications were administered Disposition Summary: 02/27/25 00:23 Discharge Ordered Notes: Location: Home sp3 Condition: Stable sp3 Diagnosis - Vaginal bleeding in third trimester, resolved sp3 Followup: sp3 - With: Private Physician - When: Upon discharge from the Emergency Department - Reason: Continuance of care Discharge Instructions: - Discharge Summary Sheet sp3 - Third Trimester of sp3 Forms: - Medication Reconciliation Form sp3 - Antibiotic Education sp3 - Prescription Opioid Use sp3 - Patient Portal Instructions sp3 - Leadership Thank You Letter sp3 Signatures: Dispatcher [employer] EDWily Tamayo MD MD sp3 Mary Anne Campbell cp4
--- NOTE | 2025-02-27 01:37 | RAD REPORT ---
EXAM DESCRIPTION: OB Limited RadLex: US LIMITED CLINICAL HISTORY: 19 years Female, Vag bleeding at 32 wks COMPARISON: None. FINDINGS: Limited grayscale and color Doppler images were obtained. Single live intrauterine is ident ified with cephalic presentation. heart rate of 133 bpm. Posterior placenta. CHAN of 4.3 cm. IMPRESSION: Single live intrauterine . CHAN of 4.3 cm. Electronically signed by: Vicky Zhao MD 02/27/2025 01:31 AM CDT RP Due to temporary technical issues with the PACS/[employer] scribe reporting system, reports are being sign ed by the in-house radiologist without review as a courtesy to ensure prompt reporting the interpreting rad iologist is fully responsible for the content of the report. Transcribed Date/Time: 02/27/2025 1:36 AM
[2025-02-27 02:17] VITALS: TEMP 98.1; O2SAT 99
[2025-02-27 02:19] VITALS: BP 114/72
== END 2025-02-27 00:47 | disposition home or self-care (01) ==
LOC: ER 23:26
DX: O26.893 Other specified pregnancy related conditions, third trimester (principal); Z3A.32 32 weeks gestation of pregnancy
CPT/HCPCS: 76815; 99283